=== PATIENT | female | born 1955 | race Hispanic/Latino ===

== ENCOUNTER 2020-01-04 18:19 | Inpatient (IN) | payer MEDICARE ==
[~2020-01-04] VITALS: Ht 154.9 cm; Wt 70.4 kg
--- OUTSIDE RECORDS SUMMARY | 2020-01-04 18:22 | XMS REPORT ---
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 Allergies, Adverse Reactions, Alerts Allergy Name Allergy Type Status Severity Reaction(s) Onset Date Inactive Date Treating Clinician Comments No Known Allergies DA Active U 2019-10-04 00:00:00 Medications This patient has no known medications. Results Test Description Test Time Test Comments Text Results Atomic Results Result Comments GLUBED 2019-10-12 17:14:00 GLUBED (test code=GLUBED) 179 mg/dL 74-106 Performed by certified chemical unit operator at [facility] [id number] 14:40:00* Test Item Value Reference Range Comments GLUBED (test code=GLUBED) 166 mg/dL 74-106 Performed by certified chemical unit operator at [facility] [id number] 06:41:00* Test Item Value Reference Range Comments GLUBED (test code=GLUBED) 191 mg/dL 74-106 Performed by certified chemical unit operator at [facility] [id number] 20:51:00* Test Item Value Reference Range Comments GLUBED (test code=GLUBED) 176 mg/dL 74-106 Performed by certified chemical unit operator at [facility] [id number] 17:36:00* Test Item Value Reference Range Comments GLUBED (test code=GLUBED) 135 mg/dL 74-106 Performed by certified chemical unit operator at [facility] [id number] 12:52:00* Test Item Value Reference Range Comments GLUBED (test code=GLUBED) 155 mg/dL 74-106 Performed by certified chemical unit operator at [facility] BASIC METABOLIC [id number] 10:04:00* Test Item Value Reference Range Comments SODIUM (test code=NA) 145 mmol/L 136-145 POTASSIUM (test code=K) 3.6 mmol/L 3.5-5.1 CHLORIDE (test code=CL) 115.0 mmol/L 98-107 CARBON DIOXIDE (test code=CO2) 23.0 mmol/L 21-32 ANION GAP (test code=GAP) 10.6 10-20 GLUCOSE (test code=GLU) 131 mg/dL 74-106 BLOOD UREA NITROGEN (test code=BUN) 10 mg/dL 7-18 GLOMERULAR FILTRATION RATE (test code=GFR) > 60 mL/min >=60 Estimated GFR by using Modified MDRD formula.Chronic kidney disease is defined as either kidney damageor GFR <60 mL/min/1.73 m2 for >3 months. CREATININE (test code=CREAT) 0.50 mg/dL 0.55-1.02 Note change in reference range due to change in reagent. BUN/CREATININE RATIO (test code=BUN/CREA) 20.0 10-20 CALCIUM (test code=CA) 7.1 mg/dL 8.5-10.1 BASIC METABOLIC [id number] 10:01:00* Test Item Value Reference Range Comments SODIUM (test code=NA) 145 mmol/L 136-145 POTASSIUM (test code=K) 3.6 mmol/L 3.5-5.1 CHLORIDE (test code=CL) 115.0 mmol/L 98-107 CARBON DIOXIDE (test code=CO2) 23.0 mmol/L 21-32 ANION GAP (test code=GAP) 10.6 10-20 GLUCOSE (test code=GLU) mg/dL 74-106 BLOOD UREA NITROGEN (test code=BUN) 10 mg/dL 7-18 GLOMERULAR FILTRATION RATE (test code=GFR) mL/min >=60 CREATININE (test code=CREAT) mg/dL 0.55-1.02 BUN/CREATININE RATIO (test code=BUN/CREA) 10-20 CALCIUM (test code=CA) 7.1 mg/dL 8.5-10.1 CBC W/AUTO [id number] 09:39:00* Test Item Value Reference Range Comments WHITE BLOOD CELL (test code=WBC) 5.5 K/mm3 4.5-12.5 RED BLOOD CELL (test code=RBC) 3.16 mill/mm3 3.7-5.2 HEMOGLOBIN (test code=HGB) 8.5 gram/dL 11.5-15.5 HEMATOCRIT (test code=HCT) 27.3 % 36.0-46.0 MEAN CELL VOLUME (test code=MCV) 86.4 fL 80-98 MEAN CELL HGB (test code=MCH) 26.9 picogram 27.0-33.0 MEAN CELL HGB CONCETRATION (test code=MCHC) 31.1 gram/dL 33.0-36.0 RED CELL DISTRIBUTION WIDTH (test code=RDW) 14.6 % 11.6-16.2 RED CELL DISTRIBUTION WIDTH SD (test code=RDW-SD) 45.4 fL 37.0-51.0 PLATELET COUNT (test code=PLT) 193 K/mm3 150-450 MEAN PLATELET VOLUME (test code=MPV) 10.9 fL 6.7-11.0 NEUTROPHIL % (test code=NT%) 55.3 % 39.0-69.0 IMMATURE GRANULOCYTE % (test code=IG%) 0.9 % 0.0-5.0 LYMPHOCYTE % (test code=LY%) 30.4 % 25.0-55.0 MONOCYTE % (test code=MO%) 7.6 % 0.0-10.0 EOSINOPHIL % (test code=EO%) 5.4 % 0.0-5.0 BASOPHIL % (test code=BA%) 0.4 % 0.0-1.0 NUCLEATED RBC % (test code=NRBC%) 0.0 % 0-0 NEUTROPHIL # (test code=NT#) 3.06 K/mm3 1.8-7.7 IMMATURE GRANULOCYTE # (test code=IG#) 0.05 x10 3/uL 0-0.03 LYMPHOCYTE # (test code=LY#) 1.68 K/mm3 1.0-5.0 MONOCYTE # (test code=MO#) 0.42 K/mm3 0-0.8 EOSINOPHIL # (test code=EO#) 0.30 K/mm3 0.0-0.5 BASOPHIL # (test code=BA#) 0.02 K/mm3 0.0-0.2 NUCLEATED RBC # (test code=NRBC#) 0.00 K/mm3 0.0-0.1 MANUAL DIFF REQUIRED (test code=MDIFF) NO [id number] 06:58:00* Test Item Value Reference Range Comments GLUBED (test code=GLUBED) 127 mg/dL 74-106 [facility] [id number] 21:34:00* Test Item Value Reference Range Comments GLUBED (test code=GLUBED) 186 mg/dL 74-106 [facility] [id number] 17:07:00* Test Item Value Reference Range Comments GLUBED (test code=GLUBED) 126 mg/dL 74-106 Performed by certified chemical unit operator at [facility] [id number] 13:07:00* Test Item Value Reference Range Comments HEMOGLOBIN (test code=HGB) 6.9 gram/dL 11.5-15.5 [id number] 12:17:00* Test Item Value Reference Range Comments GLUBED (test code=GLUBED) 138 mg/dL 74-106 Performed by certified chemical unit operator at [facility] [id number] 06:20:00* Test Item Value Reference Range Comments GLUBED (test code=GLUBED) 132 mg/dL 74-106 Performed by certified chemical unit operator at [facility] [id number] 20:45:00* Test Item Value Reference Range Comments GLUBED (test code=GLUBED) 150 mg/dL 74-106 Performed by certified chemical unit operator at [facility] CBC W/AUTO [id number] 19:52:00* Test Item Value Reference Range Comments WHITE BLOOD CELL (test code=WBC) 5.5 K/mm3 4.5-12.5 RED BLOOD CELL (test code=RBC) 2.46 mill/mm3 3.7-5.2 HEMOGLOBIN (test code=HGB) 6.6 gram/dL 11.5-15.5 HEMATOCRIT (test code=HCT) 22.1 % 36.0-46.0 MEAN CELL VOLUME (test code=MCV) 89.8 fL 80-98 MEAN CELL HGB (test code=MCH) 26.8 picogram 27.0-33.0 MEAN CELL HGB CONCETRATION (test code=MCHC) 29.9 gram/dL 33.0-36.0 RED CELL DISTRIBUTION WIDTH (test code=RDW) 13.5 % 11.6-16.2 RED CELL DISTRIBUTION WIDTH SD (test code=RDW-SD) 44.4 fL 37.0-51.0 PLATELET COUNT (test code=PLT) 197 K/mm3 150-450 MEAN PLATELET VOLUME (test code=MPV) 11.1 fL 6.7-11.0 NEUTROPHIL % (test code=NT%) 55.2 % 39.0-69.0 IMMATURE GRANULOCYTE % (test code=IG%) 0.4 % 0.0-5.0 LYMPHOCYTE % (test code=LY%) 32.9 % 25.0-55.0 MONOCYTE % (test code=MO%) 7.1 % 0.0-10.0 EOSINOPHIL % (test code=EO%) 4.0 % 0.0-5.0 BASOPHIL % (test code=BA%) 0.4 % 0.0-1.0 NUCLEATED RBC % (test code=NRBC%) 0.0 % 0-0 NEUTROPHIL # (test code=NT#) 3.02 K/mm3 1.8-7.7 IMMATURE GRANULOCYTE # (test code=IG#) 0.02 x10 3/uL 0-0.03 LYMPHOCYTE # (test code=LY#) 1.80 K/mm3 1.0-5.0 MONOCYTE # (test code=MO#) 0.39 K/mm3 0-0.8 EOSINOPHIL # (test code=EO#) 0.22 K/mm3 0.0-0.5 BASOPHIL # (test code=BA#) 0.02 K/mm3 0.0-0.2 NUCLEATED RBC # (test code=NRBC#) 0.00 K/mm3 0.0-0.1 DIFFERENTIAL [id number] 19:52:00* Test Item Value Reference Range Comments STAIN ACCEPTABILITY (test code=STN ACCEPTABLE) STAIN ACCEPTABLE POIKILOCYTOSIS (test code=POIK) 1+ CRENATED CELLS (test code=CREN) 1+ PLATELET ESTIMATE (test code=PLTEST) ADEQUATE PLATELET MORPHOLOGY (test code=PLTMORPH) SIZE VARIABLE CBC W/AUTO [id number] 19:30:00* Test Item Value Reference Range Comments WHITE BLOOD CELL (test code=WBC) 5.5 K/mm3 4.5-12.5 RED BLOOD CELL (test code=RBC) 2.46 mill/mm3 3.7-5.2 HEMOGLOBIN (test code=HGB) 6.6 gram/dL 11.5-15.5 HEMATOCRIT (test code=HCT) 22.1 % 36.0-46.0 MEAN CELL VOLUME (test code=MCV) 89.8 fL 80-98 MEAN CELL HGB (test code=MCH) 26.8 picogram 27.0-33.0 MEAN CELL HGB CONCETRATION (test code=MCHC) 29.9 gram/dL 33.0-36.0 RED CELL DISTRIBUTION WIDTH (test code=RDW) 13.5 % 11.6-16.2 RED CELL DISTRIBUTION WIDTH SD (test code=RDW-SD) 44.4 fL 37.0-51.0 PLATELET COUNT (test code=PLT) 197 K/mm3 150-450 MEAN PLATELET VOLUME (test code=MPV) 11.1 fL 6.7-11.0 NEUTROPHIL % (test code=NT%) 55.2 % 39.0-69.0 IMMATURE GRANULOCYTE % (test code=IG%) 0.4 % 0.0-5.0 LYMPHOCYTE % (test code=LY%) 32.9 % 25.0-55.0 MONOCYTE % (test code=MO%) 7.1 % 0.0-10.0 EOSINOPHIL % (test code=EO%) 4.0 % 0.0-5.0 BASOPHIL % (test code=BA%) 0.4 % 0.0-1.0 NUCLEATED RBC % (test code=NRBC%) 0.0 % 0-0 NEUTROPHIL # (test code=NT#) 3.02 K/mm3 1.8-7.7 IMMATURE GRANULOCYTE # (test code=IG#) 0.02 x10 3/uL 0-0.03 LYMPHOCYTE # (test code=LY#) 1.80 K/mm3 1.0-5.0 MONOCYTE # (test code=MO#) 0.39 K/mm3 0-0.8 EOSINOPHIL # (test code=EO#) 0.22 K/mm3 0.0-0.5 BASOPHIL # (test code=BA#) 0.02 K/mm3 0.0-0.2 NUCLEATED RBC # (test code=NRBC#) 0.00 K/mm3 0.0-0.1 DIFFERENTIAL [id number] 19:30:00* Test Item Value Reference Range Comments STAIN ACCEPTABILITY (test code=STN ACCEPTABLE) CABOT RINGS (test code=CAB) MORPHOLOGY COMMENT (test code=MOC) PLATELET ESTIMATE (test code=PLTEST) PLATELET MORPHOLOGY (test code=PLTMORPH) CBC W/AUTO [id number] 19:30:00* Test Item Value Reference Range Comments WHITE BLOOD CELL (test code=WBC) 5.5 K/mm3 4.5-12.5 RED BLOOD CELL (test code=RBC) 2.46 mill/mm3 3.7-5.2 HEMOGLOBIN (test code=HGB) 6.6 gram/dL 11.5-15.5 HEMATOCRIT (test code=HCT) 22.1 % 36.0-46.0 MEAN CELL VOLUME (test code=MCV) 89.8 fL 80-98 MEAN CELL HGB (test code=MCH) 26.8 picogram 27.0-33.0 MEAN CELL HGB CONCETRATION (test code=MCHC) 29.9 gram/dL 33.0-36.0 RED CELL DISTRIBUTION WIDTH (test code=RDW) 13.5 % 11.6-16.2 RED CELL DISTRIBUTION WIDTH SD (test code=RDW-SD) 44.4 fL 37.0-51.0 PLATELET COUNT (test code=PLT) 197 K/mm3 150-450 MEAN PLATELET VOLUME (test code=MPV) 11.1 fL 6.7-11.0 NEUTROPHIL % (test code=NT%) 55.2 % 39.0-69.0 IMMATURE GRANULOCYTE % (test code=IG%) 0.4 % 0.0-5.0 LYMPHOCYTE % (test code=LY%) 32.9 % 25.0-55.0 MONOCYTE % (test code=MO%) 7.1 % 0.0-10.0 EOSINOPHIL % (test code=EO%) 4.0 % 0.0-5.0 BASOPHIL % (test code=BA%) 0.4 % 0.0-1.0 NUCLEATED RBC % (test code=NRBC%) 0.0 % 0-0 NEUTROPHIL # (test code=NT#) 3.02 K/mm3 1.8-7.7 IMMATURE GRANULOCYTE # (test code=IG#) 0.02 x10 3/uL 0-0.03 LYMPHOCYTE # (test code=LY#) 1.80 K/mm3 1.0-5.0 MONOCYTE # (test code=MO#) 0.39 K/mm3 0-0.8 EOSINOPHIL # (test code=EO#) 0.22 K/mm3 0.0-0.5 BASOPHIL # (test code=BA#) 0.02 K/mm3 0.0-0.2 NUCLEATED RBC # (test code=NRBC#) 0.00 K/mm3 0.0-0.1 DIFFERENTIAL [id number] 19:30:00* Test Item Value Reference Range Comments STAIN ACCEPTABILITY (test code=STN ACCEPTABLE) CABOT RINGS (test code=CAB) MORPHOLOGY COMMENT (test code=MOC) PLATELET ESTIMATE (test code=PLTEST) PLATELET MORPHOLOGY (test code=PLTMORPH) CBC W/AUTO [id number] 19:30:00* Test Item Value Reference Range Comments WHITE BLOOD CELL (test code=WBC) 5.5 K/mm3 4.5-12.5 RED BLOOD CELL (test code=RBC) 2.46 mill/mm3 3.7-5.2 HEMOGLOBIN (test code=HGB) 6.6 gram/dL 11.5-15.5 HEMATOCRIT (test code=HCT) 22.1 % 36.0-46.0 MEAN CELL VOLUME (test code=MCV) 89.8 fL 80-98 MEAN CELL HGB (test code=MCH) 26.8 picogram 27.0-33.0 MEAN CELL HGB CONCETRATION (test code=MCHC) 29.9 gram/dL 33.0-36.0 RED CELL DISTRIBUTION WIDTH (test code=RDW) 13.5 % 11.6-16.2 RED CELL DISTRIBUTION WIDTH SD (test code=RDW-SD) 44.4 fL 37.0-51.0 PLATELET COUNT (test code=PLT) 197 K/mm3 150-450 MEAN PLATELET VOLUME (test code=MPV) 11.1 fL 6.7-11.0 NEUTROPHIL % (test code=NT%) 55.2 % 39.0-69.0 IMMATURE GRANULOCYTE % (test code=IG%) 0.4 % 0.0-5.0 LYMPHOCYTE % (test code=LY%) 32.9 % 25.0-55.0 MONOCYTE % (test code=MO%) 7.1 % 0.0-10.0 EOSINOPHIL % (test code=EO%) 4.0 % 0.0-5.0 BASOPHIL % (test code=BA%) 0.4 % 0.0-1.0 NUCLEATED RBC % (test code=NRBC%) 0.0 % 0-0 NEUTROPHIL # (test code=NT#) 3.02 K/mm3 1.8-7.7 IMMATURE GRANULOCYTE # (test code=IG#) 0.02 x10 3/uL 0-0.03 LYMPHOCYTE # (test code=LY#) 1.80 K/mm3 1.0-5.0 MONOCYTE # (test code=MO#) 0.39 K/mm3 0-0.8 EOSINOPHIL # (test code=EO#) 0.22 K/mm3 0.0-0.5 BASOPHIL # (test code=BA#) 0.02 K/mm3 0.0-0.2 NUCLEATED RBC # (test code=NRBC#) 0.00 K/mm3 0.0-0.1 DIFFERENTIAL [id number] 19:30:00* Test Item Value Reference Range Comments STAIN ACCEPTABILITY (test code=STN ACCEPTABLE) MORPHOLOGY COMMENT (test code=MOC) PLATELET ESTIMATE (test code=PLTEST) PLATELET MORPHOLOGY (test code=PLTMORPH) CBC W/AUTO [id number] 19:28:00* Test Item Value Reference Range Comments WHITE BLOOD CELL (test code=WBC) 5.5 K/mm3 4.5-12.5 RED BLOOD CELL (test code=RBC) 2.46 mill/mm3 3.7-5.2 HEMOGLOBIN (test code=HGB) 6.6 gram/dL 11.5-15.5 HEMATOCRIT (test code=HCT) 22.1 % 36.0-46.0 MEAN CELL VOLUME (test code=MCV) 89.8 fL 80-98 MEAN CELL HGB (test code=MCH) 26.8 picogram 27.0-33.0 MEAN CELL HGB CONCETRATION (test code=MCHC) 29.9 gram/dL 33.0-36.0 RED CELL DISTRIBUTION WIDTH (test code=RDW) 13.5 % 11.6-16.2 RED CELL DISTRIBUTION WIDTH SD (test code=RDW-SD) 44.4 fL 37.0-51.0 PLATELET COUNT (test code=PLT) 197 K/mm3 150-450 MEAN PLATELET VOLUME (test code=MPV) 11.1 fL 6.7-11.0 NEUTROPHIL % (test code=NT%) 55.2 % 39.0-69.0 IMMATURE GRANULOCYTE % (test code=IG%) 0.4 % 0.0-5.0 LYMPHOCYTE % (test code=LY%) 32.9 % 25.0-55.0 MONOCYTE % (test code=MO%) 7.1 % 0.0-10.0 EOSINOPHIL % (test code=EO%) 4.0 % 0.0-5.0 BASOPHIL % (test code=BA%) 0.4 % 0.0-1.0 NUCLEATED RBC % (test code=NRBC%) 0.0 % 0-0 NEUTROPHIL # (test code=NT#) 3.02 K/mm3 1.8-7.7 IMMATURE GRANULOCYTE # (test code=IG#) 0.02 x10 3/uL 0-0.03 LYMPHOCYTE # (test code=LY#) 1.80 K/mm3 1.0-5.0 MONOCYTE # (test code=MO#) 0.39 K/mm3 0-0.8 EOSINOPHIL # (test code=EO#) 0.22 K/mm3 0.0-0.5 BASOPHIL # (test code=BA#) 0.02 K/mm3 0.0-0.2 NUCLEATED RBC # (test code=NRBC#) 0.00 K/mm3 0.0-0.1 BASIC METABOLIC [id number] 19:18:00* Test Item Value Reference Range Comments SODIUM (test code=NA) 144 mmol/L 136-145 POTASSIUM (test code=K) 3.8 mmol/L 3.5-5.1 CHLORIDE (test code=CL) 114.0 mmol/L 98-107 CARBON DIOXIDE (test code=CO2) 23.0 mmol/L 21-32 ANION GAP (test code=GAP) 10.8 10-20 GLUCOSE (test code=GLU) 151 mg/dL 74-106 BLOOD UREA NITROGEN (test code=BUN) 11 mg/dL 7-18 GLOMERULAR FILTRATION RATE (test code=GFR) > 60 mL/min >=60 Estimated GFR by using Modified MDRD formula.Chronic kidney disease is defined as either kidney damageor GFR <60 mL/min/1.73 m2 for >3 months. CREATININE (test code=CREAT) 0.70 mg/dL 0.55-1.02 Note change in reference range due to change in reagent. BUN/CREATININE RATIO (test code=BUN/CREA) 15.7 10-20 CALCIUM (test code=CA) 7.1 mg/dL 8.5-10.1 BASIC METABOLIC [id number] 19:15:00* Test Item Value Reference Range Comments SODIUM (test code=NA) 144 mmol/L 136-145 POTASSIUM (test code=K) 3.8 mmol/L 3.5-5.1 CHLORIDE (test code=CL) 114.0 mmol/L 98-107 CARBON DIOXIDE (test code=CO2) mmol/L 21-32 ANION GAP (test code=GAP) 10-20 GLUCOSE (test code=GLU) mg/dL 74-106 BLOOD UREA NITROGEN (test code=BUN) mg/dL 7-18 GLOMERULAR FILTRATION RATE (test code=GFR) mL/min >=60 CREATININE (test code=CREAT) mg/dL 0.55-1.02 BUN/CREATININE RATIO (test code=BUN/CREA) 10-20 CALCIUM (test code=CA) mg/dL 8.5-10.1 [id number] 16:25:00* Test Item Value Reference Range Comments GLUBED (test code=GLUBED) 142 mg/dL 74-106 Performed by certified chemical unit operator at [facility] [id number] 11:48:00* Test Item Value Reference Range Comments GLUBED (test code=GLUBED) 114 mg/dL 74-106 Performed by certified chemical unit operator at [facility] [id number] 05:59:00* Test Item Value Reference Range Comments GLUBED (test code=GLUBED) 71 mg/dL 74-106 Performed by certified chemical unit operator at [facility] [id number] 20:44:00* Test Item Value Reference Range Comments GLUBED (test code=GLUBED) 134 mg/dL 74-106 Performed by certified chemical unit operator at [facility] [id number] 18:33:00* Test Item Value Reference Range Comments GLUBED (test code=GLUBED) 113 mg/dL 74-106 Performed by certified chemical unit operator at [facility] - NM BONE [id number] 14:28:00 FAX: Ana Lilia Stern [phone] [place]: St: ADM Name: YOSELIN BLACKMAN [facility] : [birth year] Age/S: 64/F [address] [facility] Unit #: [id number] Loc: V.2050 [place] [address] Phys: Woodrow Escamilla Acct: [id number] Dis Date: Status: ADM IN PHONE #: [phone] Exam Date: 10/08/2019 1325 FAX #: [phone] Reason: osteomyelitis of sacrum EXAMS: CPT CODE: [id number] NM BONE LIMITED 57741 REASON FOR EXAM: osteomyelitis of sacrum Exam Order Date: 10/08/2019 8:16 PM Ordering: Angela Escamilla Attending:Ana Lilia East MD Location:[facility] COMPARISON:CT of the abdomen 10/04/2019 Procedure: - NM BONE LIMITED FINDINGS: The patient was injected with 1:13 PM mCi of technetium 99m HDP. The delayed images show no abnormal uptake within the pelvis or proximal femurs IM PRESSION: No abnormal uptake to suggest osteomyelitis of the sacrum/cocc yx at 6042 Reported and signed by: Hal Camacho M.D. CC: Ana Lilia East MD Technologist: Gloria jolley RT(N) Trnscrd Date/Time/By: 10/08/2019 ( 6380) : By: [email or web address] Orig Print D/T: S: 10/08/2019 (6025) PAGE 1 Signed Report [id number] 13:08:00* Test Item Value Reference Range Comments GLUBED (test code=GLUBED) 98 mg/dL 74-106 Performed by certified chemical unit operator at [facility] [id number] 05:48:00* Test Item Value Reference Range Comments GLUBED (test code=GLUBED) 79 mg/dL 74-106 Performed by certified chemical unit operator at [facility] [id number] 21:20:00* Test Item Value Reference Range Comments GLUBED (test code=GLUBED) 158 mg/dL 74-106 Performed by certified chemical unit operator at [facility] [id number] 16:55:00* Test Item Value Reference Range Comments GLUBED (test code=GLUBED) 124 mg/dL 74-106 Performed by certified chemical unit operator at [facility] [id number] 16:55:00* Test Item Value Reference Range Comments GLUBED (test code=GLUBED) 116 mg/dL 74-106 Performed by certified chemical unit operator at [facility] [id number] 06:47:00* Test Item Value Reference Range Comments GLUBED (test code=GLUBED) 98 mg/dL 74-106 Performed by certified chemical unit operator at [facility] [id number] 21:17:00* Test Item Value Reference Range Comments GLUBED (test code=GLUBED) 217 mg/dL 74-106 Performed by certified chemical unit operator at [facility] - MRI BRAIN W/O [id number] 20:25:00 FAX: Ana Lilia Stern [phone] [place]: B St: [facility] FAX: Angel Najera MD Name: YOSELIN HALL [facility] : 1955 Age/S: 64/F [address] Unit #: [id number] Loc: V.2050 [place] [address] Phys: Ana Lilia East MD Acct: [id number] Dis Date: Status: ADM IN PHONE #: [phone] Exam Date: 10/06/2019 1704 FAX #: [phone] Reason: Worsening left sided weakness, r/o CVA EXAMS: CPT CODE: [id number] MRI BRAIN W/O CONTRAST 15333 EXAM: MRI of the brain without contrast; INFORMATI ON: Worsening left-sided weakness; rule out new CVA; TECHNIQUE AND FINDINGS: Multiplanar, multisequence scans of the brain were obtained inc luding diffusion-weighted studies. The ADC map study as well as FLAI R and T1 and T2 weighted studies show extensive chronic infarct in the rig ht MCA distribution. In addition, there is a narrow lesion with restricted diffusion along the lateral aspect of the dilated right ventricle. This is consistent with a superimposed small acute infarct no other acute ischemic lesions are demonstrated. The gradient echo study shows no evidence of intra or extra-axial hemorrhage. No mass lesions; no midline s hift. Ex vacuo dilatation of the right lateral ventricle and moderate dilatation of the left lateral ventricle. Periventricular gliosis is also seen. IMPRESSION: 1. 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 2. Additional chronic ischemic white matter changes. Location code: [facility] at 2024 Reported and signed by: Lb Lee M.D. CC: Ana Lilia East MD; Angel Najera MD Technologist: Catalina Mcdonnell(Sushil)(MR) Trnscrd Date/Time/By: 09/20 (2024) : By: ChristopherGRW Orig Print D/T: S: 10/06/2019 (2027) PAGE 1 Signed Report [id number] 18:38:00* Test Item Value Reference Range Comments GLUBED (test code=GLUBED) 177 mg/dL 74-106 Performed by certified chemical unit operator at [facility] [id number] 18:38:00* Test Item Value Reference Range Comments GLUBED (test code=GLUBED) 119 mg/dL 74-106 Performed by certified chemical unit operator at [facility] CBC W/AUTO [id number] 12:39:00* Test Item Value Reference Range Comments WHITE BLOOD CELL (test code=WBC) 6.9 K/mm3 4.5-12.5 RED BLOOD CELL (test code=RBC) 2.79 mill/mm3 3.7-5.2 HEMOGLOBIN (test code=HGB) 7.5 gram/dL 11.5-15.5 HEMATOCRIT (test code=HCT) 26.5 % 36.0-46.0 MEAN CELL VOLUME (test code=MCV) 95.0 fL 80-98 RESULT VERIFIED BY REPEAT ANALYSIS MEAN CELL HGB (test code=MCH) 26.9 picogram 27.0-33.0 MEAN CELL HGB CONCETRATION (test code=MCHC) 28.3 gram/dL 33.0-36.0 RED CELL DISTRIBUTION WIDTH (test code=RDW) 13.2 % 11.6-16.2 RED CELL DISTRIBUTION WIDTH SD (test code=RDW-SD) 45.8 fL 37.0-51.0 PLATELET COUNT (test code=PLT) 191 K/mm3 150-450 RESULT VERIFIED BY REPEAT ANALYSIS MEAN PLATELET VOLUME (test code=MPV) 11.3 fL 6.7-11.0 NEUTROPHIL % (test code=NT%) 64.3 % 39.0-69.0 IMMATURE GRANULOCYTE % (test code=IG%) 0.4 % 0.0-5.0 LYMPHOCYTE % (test code=LY%) 25.9 % 25.0-55.0 MONOCYTE % (test code=MO%) 5.5 % 0.0-10.0 EOSINOPHIL % (test code=EO%) 3.5 % 0.0-5.0 BASOPHIL % (test code=BA%) 0.4 % 0.0-1.0 NUCLEATED RBC % (test code=NRBC%) 0.0 % 0-0 NEUTROPHIL # (test code=NT#) 4.44 K/mm3 1.8-7.7 IMMATURE GRANULOCYTE # (test code=IG#) 0.03 x10 3/uL 0-0.03 LYMPHOCYTE # (test code=LY#) 1.79 K/mm3 1.0-5.0 MONOCYTE # (test code=MO#) 0.38 K/mm3 0-0.8 EOSINOPHIL # (test code=EO#) 0.24 K/mm3 0.0-0.5 BASOPHIL # (test code=BA#) 0.03 K/mm3 0.0-0.2 NUCLEATED RBC # (test code=NRBC#) 0.00 K/mm3 0.0-0.1 MANUAL DIFF REQUIRED (test code=MDIFF) NO, ONLY SCAN NEEDED DIFFERENTIAL [id number] 12:39:00* Test Item Value Reference Range Comments STAIN ACCEPTABILITY (test code=STN ACCEPTABLE) STAIN ACCEPTABLE MORPHOLOGY COMMENT (test code=MOC) NORMAL PLATELET ESTIMATE (test code=PLTEST) ADEQUATE PLATELET MORPHOLOGY (test code=PLTMORPH) SIZE VARIABLE [id number] 09:46:00* Test Item Value Reference Range Comments GLYCOSYLATED HEMOGLOBIN (HA1C) (test code=GLYHGB) 6.0 % HbA1 SUGGESTED DIAGNOSIS: HbA1C (%) Diabetic >6.4Prediabetes 5.7 - 6.4Normal <5.7 ESTIMATED AVERAGE GLUCOSE (test code=EAG) 126 MG/DL CBC W/AUTO [id number] 09:24:00* Test Item Value Reference Range Comments WHITE BLOOD CELL (test code=WBC) 6.9 K/mm3 4.5-12.5 RED BLOOD CELL (test code=RBC) 2.79 mill/mm3 3.7-5.2 HEMOGLOBIN (test code=HGB) 7.5 gram/dL 11.5-15.5 HEMATOCRIT (test code=HCT) 26.5 % 36.0-46.0 MEAN CELL VOLUME (test code=MCV) 95.0 fL 80-98 RESULT VERIFIED BY REPEAT ANALYSIS MEAN CELL HGB (test code=MCH) 26.9 picogram 27.0-33.0 MEAN CELL HGB CONCETRATION (test code=MCHC) 28.3 gram/dL 33.0-36.0 RED CELL DISTRIBUTION WIDTH (test code=RDW) 13.2 % 11.6-16.2 RED CELL DISTRIBUTION WIDTH SD (test code=RDW-SD) 45.8 fL 37.0-51.0 PLATELET COUNT (test code=PLT) 191 K/mm3 150-450 RESULT VERIFIED BY REPEAT ANALYSIS MEAN PLATELET VOLUME (test code=MPV) 11.3 fL 6.7-11.0 NEUTROPHIL % (test code=NT%) 64.3 % 39.0-69.0 IMMATURE GRANULOCYTE % (test code=IG%) 0.4 % 0.0-5.0 LYMPHOCYTE % (test code=LY%) 25.9 % 25.0-55.0 MONOCYTE % (test code=MO%) 5.5 % 0.0-10.0 EOSINOPHIL % (test code=EO%) 3.5 % 0.0-5.0 BASOPHIL % (test code=BA%) 0.4 % 0.0-1.0 NUCLEATED RBC % (test code=NRBC%) 0.0 % 0-0 NEUTROPHIL # (test code=NT#) 4.44 K/mm3 1.8-7.7 IMMATURE GRANULOCYTE # (test code=IG#) 0.03 x10 3/uL 0-0.03 LYMPHOCYTE # (test code=LY#) 1.79 K/mm3 1.0-5.0 MONOCYTE # (test code=MO#) 0.38 K/mm3 0-0.8 EOSINOPHIL # (test code=EO#) 0.24 K/mm3 0.0-0.5 BASOPHIL # (test code=BA#) 0.03 K/mm3 0.0-0.2 NUCLEATED RBC # (test code=NRBC#) 0.00 K/mm3 0.0-0.1 MANUAL DIFF REQUIRED (test code=MDIFF) NO, ONLY SCAN NEEDED DIFFERENTIAL [id number] 09:24:00* Test Item Value Reference Range Comments STAIN ACCEPTABILITY (test code=STN ACCEPTABLE) CABOT RINGS (test code=CAB) MORPHOLOGY COMMENT (test code=MOC) PLATELET ESTIMATE (test code=PLTEST) PLATELET MORPHOLOGY (test code=PLTMORPH) CBC W/AUTO [id number] 09:24:00* Test Item Value Reference Range Comments WHITE BLOOD CELL (test code=WBC) 6.9 K/mm3 4.5-12.5 RED BLOOD CELL (test code=RBC) 2.79 mill/mm3 3.7-5.2 HEMOGLOBIN (test code=HGB) 7.5 gram/dL 11.5-15.5 HEMATOCRIT (test code=HCT) 26.5 % 36.0-46.0 MEAN CELL VOLUME (test code=MCV) 95.0 fL 80-98 RESULT VERIFIED BY REPEAT ANALYSIS MEAN CELL HGB (test code=MCH) 26.9 picogram 27.0-33.0 MEAN CELL HGB CONCETRATION (test code=MCHC) 28.3 gram/dL 33.0-36.0 RED CELL DISTRIBUTION WIDTH (test code=RDW) 13.2 % 11.6-16.2 RED CELL DISTRIBUTION WIDTH SD (test code=RDW-SD) 45.8 fL 37.0-51.0 PLATELET COUNT (test code=PLT) 191 K/mm3 150-450 RESULT VERIFIED BY REPEAT ANALYSIS MEAN PLATELET VOLUME (test code=MPV) 11.3 fL 6.7-11.0 NEUTROPHIL % (test code=NT%) 64.3 % 39.0-69.0 IMMATURE GRANULOCYTE % (test code=IG%) 0.4 % 0.0-5.0 LYMPHOCYTE % (test code=LY%) 25.9 % 25.0-55.0 MONOCYTE % (test code=MO%) 5.5 % 0.0-10.0 EOSINOPHIL % (test code=EO%) 3.5 % 0.0-5.0 BASOPHIL % (test code=BA%) 0.4 % 0.0-1.0 NUCLEATED RBC % (test code=NRBC%) 0.0 % 0-0 NEUTROPHIL # (test code=NT#) 4.44 K/mm3 1.8-7.7 IMMATURE GRANULOCYTE # (test code=IG#) 0.03 x10 3/uL 0-0.03 LYMPHOCYTE # (test code=LY#) 1.79 K/mm3 1.0-5.0 MONOCYTE # (test code=MO#) 0.38 K/mm3 0-0.8 EOSINOPHIL # (test code=EO#) 0.24 K/mm3 0.0-0.5 BASOPHIL # (test code=BA#) 0.03 K/mm3 0.0-0.2 NUCLEATED RBC # (test code=NRBC#) 0.00 K/mm3 0.0-0.1 MANUAL DIFF REQUIRED (test code=MDIFF) NO, ONLY SCAN NEEDED DIFFERENTIAL [id number] 09:24:00* Test Item Value Reference Range Comments STAIN ACCEPTABILITY (test code=STN ACCEPTABLE) CABOT RINGS (test code=CAB) MORPHOLOGY COMMENT (test code=MOC) PLATELET ESTIMATE (test code=PLTEST) PLATELET MORPHOLOGY (test code=PLTMORPH) CBC W/AUTO [id number] 09:24:00* Test Item Value Reference Range Comments WHITE BLOOD CELL (test code=WBC) 6.9 K/mm3 4.5-12.5 RED BLOOD CELL (test code=RBC) 2.79 mill/mm3 3.7-5.2 HEMOGLOBIN (test code=HGB) 7.5 gram/dL 11.5-15.5 HEMATOCRIT (test code=HCT) 26.5 % 36.0-46.0 MEAN CELL VOLUME (test code=MCV) 95.0 fL 80-98 RESULT VERIFIED BY REPEAT ANALYSIS MEAN CELL HGB (test code=MCH) 26.9 picogram 27.0-33.0 MEAN CELL HGB CONCETRATION (test code=MCHC) 28.3 gram/dL 33.0-36.0 RED CELL DISTRIBUTION WIDTH (test code=RDW) 13.2 % 11.6-16.2 RED CELL DISTRIBUTION WIDTH SD (test code=RDW-SD) 45.8 fL 37.0-51.0 PLATELET COUNT (test code=PLT) 191 K/mm3 150-450 RESULT VERIFIED BY REPEAT ANALYSIS MEAN PLATELET VOLUME (test code=MPV) 11.3 fL 6.7-11.0 NEUTROPHIL % (test code=NT%) 64.3 % 39.0-69.0 IMMATURE GRANULOCYTE % (test code=IG%) 0.4 % 0.0-5.0 LYMPHOCYTE % (test code=LY%) 25.9 % 25.0-55.0 MONOCYTE % (test code=MO%) 5.5 % 0.0-10.0 EOSINOPHIL % (test code=EO%) 3.5 % 0.0-5.0 BASOPHIL % (test code=BA%) 0.4 % 0.0-1.0 NUCLEATED RBC % (test code=NRBC%) 0.0 % 0-0 NEUTROPHIL # (test code=NT#) 4.44 K/mm3 1.8-7.7 IMMATURE GRANULOCYTE # (test code=IG#) 0.03 x10 3/uL 0-0.03 LYMPHOCYTE # (test code=LY#) 1.79 K/mm3 1.0-5.0 MONOCYTE # (test code=MO#) 0.38 K/mm3 0-0.8 EOSINOPHIL # (test code=EO#) 0.24 K/mm3 0.0-0.5 BASOPHIL # (test code=BA#) 0.03 K/mm3 0.0-0.2 NUCLEATED RBC # (test code=NRBC#) 0.00 K/mm3 0.0-0.1 MANUAL DIFF REQUIRED (test code=MDIFF) NO, ONLY SCAN NEEDED DIFFERENTIAL [id number] 09:24:00* Test Item Value Reference Range Comments STAIN ACCEPTABILITY (test code=STN ACCEPTABLE) MORPHOLOGY COMMENT (test code=MOC) PLATELET ESTIMATE (test code=PLTEST) PLATELET MORPHOLOGY (test code=PLTMORPH) CBC W/AUTO [id number] 09:24:00* Test Item Value Reference Range Comments WHITE BLOOD CELL (test code=WBC) 6.9 K/mm3 4.5-12.5 RED BLOOD CELL (test code=RBC) 2.79 mill/mm3 3.7-5.2 HEMOGLOBIN (test code=HGB) 7.5 gram/dL 11.5-15.5 HEMATOCRIT (test code=HCT) 26.5 % 36.0-46.0 MEAN CELL VOLUME (test code=MCV) 95.0 fL 80-98 RESULT VERIFIED BY REPEAT ANALYSIS MEAN CELL HGB (test code=MCH) 26.9 picogram 27.0-33.0 MEAN CELL HGB CONCETRATION (test code=MCHC) 28.3 gram/dL 33.0-36.0 RED CELL DISTRIBUTION WIDTH (test code=RDW) 13.2 % 11.6-16.2 RED CELL DISTRIBUTION WIDTH SD (test code=RDW-SD) 45.8 fL 37.0-51.0 PLATELET COUNT (test code=PLT) 191 K/mm3 150-450 RESULT VERIFIED BY REPEAT ANALYSIS MEAN PLATELET VOLUME (test code=MPV) 11.3 fL 6.7-11.0 NEUTROPHIL % (test code=NT%) 64.3 % 39.0-69.0 IMMATURE GRANULOCYTE % (test code=IG%) 0.4 % 0.0-5.0 LYMPHOCYTE % (test code=LY%) 25.9 % 25.0-55.0 MONOCYTE % (test code=MO%) 5.5 % 0.0-10.0 EOSINOPHIL % (test code=EO%) 3.5 % 0.0-5.0 BASOPHIL % (test code=BA%) 0.4 % 0.0-1.0 NUCLEATED RBC % (test code=NRBC%) 0.0 % 0-0 NEUTROPHIL # (test code=NT#) 4.44 K/mm3 1.8-7.7 IMMATURE GRANULOCYTE # (test code=IG#) 0.03 x10 3/uL 0-0.03 LYMPHOCYTE # (test code=LY#) 1.79 K/mm3 1.0-5.0 MONOCYTE # (test code=MO#) 0.38 K/mm3 0-0.8 EOSINOPHIL # (test code=EO#) 0.24 K/mm3 0.0-0.5 BASOPHIL # (test code=BA#) 0.03 K/mm3 0.0-0.2 NUCLEATED RBC # (test code=NRBC#) 0.00 K/mm3 0.0-0.1 MANUAL DIFF REQUIRED (test code=MDIFF) NO, ONLY SCAN NEEDED DIFFERENTIAL [id number] 09:24:00* Test Item Value Reference Range Comments STAIN ACCEPTABILITY (test code=STN ACCEPTABLE) CABOT RINGS (test code=CAB) MORPHOLOGY COMMENT (test code=MOC) PLATELET ESTIMATE (test code=PLTEST) PLATELET MORPHOLOGY (test code=PLTMORPH) COMPREHENSIVE METABOLIC [id number] 08:58:00* Test Item Value Reference Range Comments SODIUM (test code=NA) 143 mmol/L 136-145 POTASSIUM (test code=K) 4.5 mmol/L 3.5-5.1 CHLORIDE (test code=CL) 113.0 mmol/L 98-107 CARBON DIOXIDE (test code=CO2) 21.0 mmol/L 21-32 ANION GAP (test code=GAP) 13.5 10-20 GLUCOSE (test code=GLU) 106 mg/dL 74-106 BLOOD UREA NITROGEN (test code=BUN) 10 mg/dL 7-18 GLOMERULAR FILTRATION RATE (test code=GFR) > 60 mL/min >=60 Estimated GFR by using Modified MDRD formula.Chronic kidney disease is defined as either kidney damageor GFR <60 mL/min/1.73 m2 for >3 months. CREATININE (test code=CREAT) 0.60 mg/dL 0.55-1.02 Note change in reference range due to change in reagent. BUN/CREATININE RATIO (test code=BUN/CREA) 16.7 10-20 TOTAL PROTEIN (test code=PROT) 5.1 gram/dL 6.4-8.2 ALBUMIN (test code=ALB) 1.3 g/dL 3.4-5.0 GLOBULIN (test code=GLOB) 3.8 gram/dL 2.7-4.2 ALBUMIN/GLOBULIN RATIO (test code=A/G) 0.3 0.75-1.50 CALCIUM (test code=CA) 7.4 mg/dL 8.5-10.1 BILIRUBIN TOTAL (test code=BILT) 0.20 mg/dL 0.0-1.0 SGOT/AST (test code=AST) 13 IUnit/L 15-37 SGPT/ALT (test code=ALT) 10 IUnit/L 12-78 ALKALINE PHOSPHATASE TOTAL (test code=ALKP) 84 IUnit/L 45-117 Note change in reference range due to change in reagent. LIPID PROFILE (CORONARY RISK)2019-10-06 08:58:00* Test Item Value Reference Range Comments TRIGLYCERIDES (test code=TRIG) 135 mg/dL 20-150 CHOLESTEROL (test code=CHOL) 133 mg/dL 0-200 CHOLESTEROL/HDL RATIO (test code=CHOLHDL) 3.0 RATIO 0-4.9 RISK ASSOCIATED WITH CHOL/HDL RATIOS: Risk Male Female1/2 AVERAGE 3.43 3.27AVERAGE 4.97 4.442X AVERAGE 9.55 7.053X AVERAGE 23.39 11.04 REFERENCE VALUE IS RELATED TO RISK LEVELS ASRECOMMENDED BY THE GIA. HEART, LUNG, AND BLOOD INST. HDL CHOLESTEROL (test code=HDL) 37 mg/dL 40-60 LIPOPROTEIN LDL (test code=LDL) 77 mg/dL 100-129 Reference Interval: mg/dL mmol/L Optimal <100 <2.6Near/above optimal 100-129 2.6- 3.3Borderline High 130-159 3.4-4.1High 160-189 4.1-4.9Very High >=190 >=4.9=========This LDL result is a direct measurement.========= COMPREHENSIVE METABOLIC [id number] 08:52:00* Test Item Value Reference Range Comments SODIUM (test code=NA) 143 mmol/L 136-145 POTASSIUM (test code=K) 4.5 mmol/L 3.5-5.1 CHLORIDE (test code=CL) 113.0 mmol/L 98-107 CARBON DIOXIDE (test code=CO2) mmol/L 21-32 ANION GAP (test code=GAP) 10-20 GLUCOSE (test code=GLU) mg/dL 74-106 BLOOD UREA NITROGEN (test code=BUN) mg/dL 7-18 GLOMERULAR FILTRATION RATE (test code=GFR) mL/min >=60 CREATININE (test code=CREAT) mg/dL 0.55-1.02 BUN/CREATININE RATIO (test code=BUN/CREA) 10-20 TOTAL PROTEIN (test code=PROT) gram/dL 6.4-8.2 ALBUMIN (test code=ALB) g/dL 3.4-5.0 GLOBULIN (test code=GLOB) gram/dL 2.7-4.2 ALBUMIN/GLOBULIN RATIO (test code=A/G) 0.75-1.50 CALCIUM (test code=CA) mg/dL 8.5-10.1 BILIRUBIN TOTAL (test code=BILT) mg/dL 0.0-1.0 SGOT/AST (test code=AST) IUnit/L 15-37 SGPT/ALT (test code=ALT) IUnit/L 12-78 ALKALINE PHOSPHATASE TOTAL (test code=ALKP) IUnit/L 45-117 LIPID PROFILE (CORONARY RISK)2019-10-06 08:52:00* Test Item Value Reference Range Comments TRIGLYCERIDES (test code=TRIG) mg/dL 20-150 CHOLESTEROL (test code=CHOL) mg/dL 0-200 CHOLESTEROL/HDL RATIO (test code=CHOLHDL) RATIO 0-4.9 HDL CHOLESTEROL (test code=HDL) mg/dL 40-60 LIPOPROTEIN LDL (test code=LDL) mg/dL 100-129 [id number] 06:25:00* Test Item Value Reference Range Comments GLUBED (test code=GLUBED) 101 mg/dL 74-106 Performed by certified chemical unit operator at [facility] [id number] 21:33:00* Test Item Value Reference Range Comments GLUBED (test code=GLUBED) 177 mg/dL 74-106 Performed by certified chemical unit operator at [facility] [id number] 10:40:00* Test Item Value Reference Range Comments GLUBED (test code=GLUBED) 137 mg/dL 74-106 Performed by certified chemical unit operator at [facility] [id number] 06:35:00* Test Item Value Reference Range Comments GLUBED (test code=GLUBED) 94 mg/dL 74-106 Performed by certified chemical unit operator at [facility] [id number] 03:18:00* Test Item Value Reference Range Comments GLUBED (test code=GLUBED) 96 mg/dL 74-106 Performed by certified chemical unit operator at [facility] SED [id number] 03:02:00* Test Item Value Reference Range Comments SED RATE (test code=SEDW) 124 mm/hr 0-20 WINTROBE METHOD: NORMAL RANGE FOR MEN: 0-9 MM/HR WOMAN: 0-20 MM/HR SED RATE [id number] 03:01:00* Test Item Value Reference Range Comments SED RATE WESTERGREN (test code=SEDW) 124 mm/hr 0-20 - CT ABD PELVIS [id number] 23:11:00 Name: YOSELIN HALL [facility] : 1955 Age/S: 64 / F [address] [facility] Unit #: [id number] Loc: [place] [address] Phys: Eleuterio Cummins MD Acct: [id number] Dis Date: Status: REG ER PHONE #: [phone] Exam Date: 10/04/20192258 FAX #: [phone] Reason: evaluate sacral ulcer EXAMS: CPT CODE: [id number] CT ABD PELVIS W/CONT 19853 Site ID: [id number] CLINICAL HISTORY: Sacral decubitus ulcer TECHNIQUE: Axial images of the abdomen and pelvis were obtained from diaphragm to the pubic symphysis with intravenous contrast. CT dose lowering technique utilized, with adjustment of MA/kV according to patient size and automated exposure control. DISCUSSION: The lung bases are clear. The heart size is normal. Trace pericardial fluid is noted. The liver is normal in size and contour, without focal abnormality. The gallbladder is normally distended, with internal gallstones. No biliary ductal dilatation. The spleen, pancreas and adrenal glands are unremarkable. Both kidneys are normal in size. No hydronephrosis or enhancing renal mass. Vascular structures are normal in caliber, with scattered small vessel calcification. The small and large bowel are free of inflammation and normal in caliber. Moderate volume stool is present throughout the colon. Appendix is normal. No adenopathy or ascites demonstrated. Uterus, adnexa and urinary bladder are within normal limits. Large stage IV decubitus ulceration is present over the coccygeal tip, with mild superficial cortical demineralization but no aggressive bony erosion. No presacral abscess. IMPRESSION: Large stage IV decubitus ulceration is present over the coccygeal tip, with mild superficial cortical demineralization but no aggressive bony erosion. No presacral abscess. Mild constipation. PAGE 1 Signed Report (CONTINUED) Name: YOSELIN HALL [facility] : 1955 Age/S: 64 / F [address] [facility] Unit #: [id number] Loc: [place] [address] Phys: Eleuterio Cummins MD Acct: [id number] Dis Date: Status: REG ER PHONE #: [phone] Exam Date: 10/04/20192258 FAX #: [phone] Reason: evaluate sacral ulcer EXAMS: CPT CODE: [id number] ABD PELVIS W/CONT 62488 < Continued> at 2311 Reported and signed by: Robert Goyal M.D. CC: Eleuterio Cummins MD Technologist:CIERA MEDINA RT(R),CT CTDI: DLP: Trnscb Date/Time: 10/04/2019 (2310) [email or web address] Orig Print D/T: S: 10/04/2019 (0819) PAGE 2 Signed Report URINALYSIS [id number] 22:58:00* Test Item Value Reference Range Comments UA COLOR (test code=COLU) DARK YELLOW YELLOW UA APPEARANCE (test code=APPU) HAZY CLEAR UA GLUCOSE DIPSTICK (test code=DGLUU) norm mg/dL NEGATIVE UA BILIRUBIN DIPSTICK (test code=BILU) NEGATIVE mg/dL NEGATIVE UA KETONE DIPSTICK (test code=KETU) 5 (Trace) mg/dL NEGATIVE UA SPECIFIC GRAVITY (test code=SGU) 1.015 1.001-1.035 UA BLOOD DIPSTICK (test code=ADDIE) 10 (Trace) Mark/uL NEGATIVE UA PH DIPSTICK (test code=AVIVA) 5.0 5.0-8.0 UA PROTEIN DIPSTICK (test code=PROU) 15 (TRACE) mg/dL Neg-15 UA UROBILINIOGEN DIPSTICK (test code=URO) 4 mg/dL (2+) mg/dL 0.0-0.2 UA NITRITE DIPSTICK (test code=GENO) NEGATIVE NEGATIVE UA LEUKOCYTE ESTERASE DIPSTICK (test code=LEUU) 500 Angela/uL (3+) uL NEGATIVE UA WBC (test code=WBCU) 20-30 per HPF 0-5 UA RBC (test code=RBCU) 3-5 per HPF 0-5 UA EPITHELIAL CELLS (test code=EPIU) Few (2-5/hpf) per HPF Few UA BACTERIA (test code=BACU) MANY per HPF NONE Urine Source? Clean CatchBASIC METABOLIC [id number] 22:31:00* Test Item Value Reference Range Comments SODIUM (test code=NA) 139 mmol/L 136-145 POTASSIUM (test code=K) 4.1 mmol/L 3.5-5.1 CHLORIDE (test code=CL) 102 mmol/L 101-109 CARBON DIOXIDE (test code=CO2) 33.4 mmol/L 21-32 ANION GAP (test code=GAP) 8 mmol/L 10-20 GLUCOSE (test code=GLU) 83 mg/dL 74-106 BLOOD UREA NITROGEN (test code=BUN) 11 mg/dL 3-21 GLOMERULAR FILTRATION RATE (test code=GFR) > 60 mL/min >=60 Estimated GFR by using Modified MDRD formula.Chronic kidney disease is defined as either kidney damageor GFR <60 mL/min/1.73 m2 for >3 months. CREATININE (test code=CREAT) 0.72 mg/dL 0.55-1.3 BUN/CREATININE RATIO (test code=BUN/CREA) 15.3 10-20 CALCIUM (test code=CA) 8.1 mg/dL 8.4-10.2 HEPATIC FUNCTION [id number] 22:31:00* Test Item Value Reference Range Comments TOTAL PROTEIN (test code=PROT) 5.5 g/dL 6.5-8.4 ALBUMIN (test code=ALB) 1.2 g/dL 3.4-4.8 GLOBULIN (test code=GLOB) 4.3 G/DL 1-10 ALBUMIN/GLOBULIN RATIO (test code=A/G) 0.28 RATIO 0.75-1.50 BILIRUBIN TOTAL (test code=BILT) 0.40 mg/dL 0.0-1.0 BILIRUBIN DIRECT (test code=BILD) 0.20 mg/dL 0.0-0.30 SGOT/AST (test code=AST) 14 U/L 6-32 SGPT/ALT (test code=ALT) 12 U/L 12-78 Note: Change in REFERENCE RANGE due to new reagent method. ALKALINE PHOSPHATASE TOTAL (test code=ALKP) 85 U/L 38-126 [id number] 22:31:00* Test Item Value Reference Range Comments TROPONIN-I (test code=TROPI) <0.015 ng/mL 0.00-0.056 - CT HEAD/BRAIN W/O [id number] 22:31:00 Name: YOSELIN HALL [facility] : 1955 Age/S: 64 / F [address] [facility] Unit #: [id number] Loc: [place] [address] Phys: Eleuterio Cummins MD Acct: [id number] Dis Date: Status: REG ER PHONE #: [phone] Exam Date: 10/04/20192214 FAX #: [phone] Reason: evaluate for new CVA EXAMS: CPT CODE: [id number] CT HEAD/BRAIN W/O CONT 49199 HISTORY: evaluate for new CVA TECHNIQUE: Noncontrast 2.[address] of the head. Examination acquired within 24 hours of arrival. Automated exposure control for dose reduction. COMPARISON: None FINDINGS: No lacerations or contusions of the scalp or facial soft tissues. Calvarium and skull base are intact. No acute hemorrhage. No intracranial mass, mass effect, or midline shift. There is a large infarct in the right frontal and temporal lobes in the territory of the right middle cerebral artery. This infarct appears to be chronic in gia ure. Visualized paranasal sinuses are clear. Mastoid air ce lls and middle ear cavities are clear. Prior right lens extraction. Left globe is unremarkable. 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 A superimposed acute infarct would be difficu lt to exclude, particularly in the absence of prior imaging. This can be assessed further with an MRI of the brain. No acute intracranial hemorr dinorah or mass effect. Location: [facility] Electronically S igned by Mushtaq Schuler MD on 10/04/2019 at 2231 Reported a nd signed by: Mushtaq Schuler MD CC: Eleuterio Cummins MD Technologist:CIERA MEDINA RT(R),CT CTDI: DLP: Trnscb Date/Time: 10/04/2019 (223) [email or web address] Orig Print D/T: S: 10/04/2019 (5195) PAGE 1 Signed Report PROTHROMBIN [id number] 22:20:00* Test Item Value Reference Range Comments PROTHROMBIN TIME PATIENT (test code=PTP) 10.9 seconds 9.0-13.0 INTERNATIONAL NORMAL RATIO (test code=INR) 1.1 0.8-1.2 The therapeutic range for oral anticoagulant therapy formost indications is an international normalized ratio (INR)of between 2.0 and 3.0. The recommended therapeutic INRrange for various clinical situations is listed below: Clinical Situation INR range Pulmonary e mbolism treatment (2.0-3.0)Venous thrombosis treatmentVenous thrombosis prophylaxis (high risk surgery)Prevention of systemic embolism from: Acute myocardial infarction Valvular heart disease Atrial fibrillation Mechanical prosthetic heart valves (2.5-3.5) IS PATIENT ON ANTICOAGULANTS? NTHROMBOPLASTIN TIME [id number] 22:20:00* Test Item Value Reference Range Comments THROMBOPLASTIN TIME PARTIAL (test code=PTT) 29.3 seconds 25.5-34.3 Therapeutic Range for patients on Heparin Therapy is 2 to2.5 times their baseline PTT level. IS PATIENT ON ANTICOAGULANTS? NBASIC METABOLIC [id number] 22:19:00* Test Item Value Reference Range Comments SODIUM (test code=NA) 139 mmol/L 136-145 POTASSIUM (test code=K) 4.1 mmol/L 3.5-5.1 CHLORIDE (test code=CL) 102 mmol/L 101-109 CARBON DIOXIDE (test code=CO2) 33.4 mmol/L 21-32 ANION GAP (test code=GAP) 8 mmol/L 10-20 GLUCOSE (test code=GLU) 83 mg/dL 74-106 BLOOD UREA NITROGEN (test code=BUN) 11 mg/dL 3-21 GLOMERULAR FILTRATION RATE (test code=GFR) > 60 mL/min >=60 Estimated GFR by using Modified MDRD formula.Chronic kidney disease is defined as either kidney damageor GFR <60 mL/min/1.73 m2 for >3 months. CREATININE (test code=CREAT) 0.72 mg/dL 0.55-1.3 BUN/CREATININE RATIO (test code=BUN/CREA) 15.3 10-20 CALCIUM (test code=CA) 8.1 mg/dL 8.4-10.2 HEPATIC FUNCTION [id number] 22:19:00* Test Item Value Reference Range Comments TOTAL PROTEIN (test code=PROT) gram/dL 6.4-8.2 ALBUMIN (test code=ALB) g/dL 3.4-5.0 GLOBULIN (test code=GLOB) g/dL 2.7-4.2 ALBUMIN/GLOBULIN RATIO (test code=A/G) 0.75-1.50 BILIRUBIN TOTAL (test code=BILT) mg/dL 0.2-1.2 BILIRUBIN DIRECT (test code=BILD) mg/dL 0.0-0.20 SGOT/AST (test code=AST) IUnit/L 15-37 SGPT/ALT (test code=ALT) U/L 10-69 ALKALINE PHOSPHATASE TOTAL (test code=ALKP) IUnit/L 45-117 [id number] 22:19:00* Test Item Value Reference Range Comments TROPONIN-I (test code=TROPI) ng/mL 0-0.045 CBC W/O [id number] 22:06:00* Test Item Value Reference Range Comments WHITE BLOOD CELL (test code=WBC) 7.3 K/mm3 4.5-12.5 RED BLOOD CELL (test code=RBC) 2.62 mill/mm3 3.7-5.2 HEMOGLOBIN (test code=HGB) 7.3 gram/dL 11.5-15.5 HEMATOCRIT (test code=HCT) 22.6 % 36.0-46.0 MEAN CELL VOLUME (test code=MCV) 86.3 fL 80-98 MEAN CELL HGB (test code=MCH) 27.9 picogram 27.0-33.0 MEAN CELL HGB CONCETRATION (test code=MCHC) 32.3 gram/dL 33.0-36.0 RED CELL DISTRIBUTION WIDTH (test code=RDW) 12.9 % 11.6-16.2 RED CELL DISTRIBUTION WIDTH SD (test code=RDW-SD) 40.4 fL 37.0-51.0 PLATELET COUNT (test code=PLT) 261 K/mm3 150-450 MEAN PLATELET VOLUME (test code=MPV) 10.6 fL 6.7-11.0 - XR CHEST 1 [id number] 21:57:00 Name: YOSELIN HALL [facility] : 1955 Age/S:64 /F [address] [facility] Unit#:[id number] Loc: [place] [address] Phys: Eleuterio Cummins MD Dis Date: PHONE #: [phone] Status: REG ER FAX #: [phone] Exam Date: 10/04/2019 Reason: CHEST PAIN EXAMS: CPT CODE: [id number] XR CHEST 1 V 01617 REASON FOR EXAM: CHEST PAIN Exam Order Date: 10/04/2019 9:22 PM Ordering M.D.: Eleuterio Cummins MD PROCEDURE: - XR CHEST 1 V COMPARISON: None FINDINGS: The lungs are clear. There is no pleural effusion or pneumothorax. Pulmonary vascularity is within normal limits. Cardiomediastinal silhouette is normal in size for technique. The mediastinal contours are within normal limits. Mild degenerative changes are present in the spine and shoulders. The visualized upper abdomen is within normal limits. IMPRESSION: No acute cardiopulmonary process. Location: [facility] at 2157 Reported and signed by: Mushtaq Schuler MD CC: Eleuterio Cummins MD Technologist: CIERA MEDINA RT(R),CT Trnscrpt Data: 10/04/2019 (2156) [id number] Orig Print D/T: S: 10/04/2019 (9670) PAGE 1 Signed Report
--- NOTE | 2020-01-04 18:41 | NUR ---
Patients [facility] contact [phone]
[2020-01-04 19:53] LABS: BASOPHILS % 0.3 % (0.0-1.0); EOSINOPHILS # (AUTO) 0.3 (0.0-0.4); EOSINOPHILS % 2.8 % (0.0-6.0); HEMATOCRIT 33.7 % (34.2-44.1); HEMOGLOBIN 11.2 g/dL (12.0-16.0); LYMPHOCYTES # (AUTO) 2.1 (1.0-3.2); LYMPHOCYTES % 22.8 % (18.0-39.1); MEAN CORPUSCULAR HGB CONC 33.2 g/dL (31-35); MEAN CORPUSCULAR VOLUME 90.3 fL (81-99); MONOCYTES # (AUTO) 0.5 (0.2-0.8); MONOCYTES % 5.2 % (4.4-11.3); NEUTROPHILS # (AUTO) 6.2 (2.1-6.9); NEUTROPHILS % 68.5 % (38.7-80.0); PLATELET COUNT 311 x10e3/uL (140-360); RED BLOOD COUNT 3.73 x10e6/uL (3.6-5.1); RED CELL DISTRIBUTION WIDTH 14.3 % (11.7-14.4)
[2020-01-04] MEDS ORDERED: PANTOPRAZOLE 40 MG 10ML VIAL IV STA (19:57)
[2020-01-04 20:04] LABS: INR 1.01; PROTHROMBIN TIME 13.9 seconds (11.9-14.5)
[2020-01-04 20:05] LABS: PARTIAL THROMBOPLASTIN TIME 37.1 seconds (23.8-35.5)
[2020-01-04 20:12] LABS: AMYLASE 50 U/L (25-125); LIPASE < 4 U/L (8-78)
[2020-01-04 20:14] LABS: ALANINE AMINOTRANSFERASE 7 IU/L (0-55); ALBUMIN 2.6 g/dL (3.5-5.0); ALBUMIN/GLOBULIN RATIO 0.6 (0.8-2.0); ALKALINE PHOSPHATASE 62 IU/L (40-150); ANION GAP 12.1 mmol/L (8-16); BLOOD UREA NITROGEN 13 mg/dL (7-26); BUN/CREATININE RATIO 21 (6-25); CALCIUM 9.4 mg/dL (8.4-10.2); CARBON DIOXIDE 30 mmol/L (22-29); CHLORIDE 96 mmol/L (98-107); CREATININE, SERUM 0.61 mg/dL (0.57-1.11); EST GLOMERULAR FILTRATION RATE > 60 ML/MIN (60-); GLUCOSE 137 mg/dL (74-118); POTASSIUM 4.1 mmol/L (3.5-5.1); SODIUM 134 mmol/L (136-145)
--- NOTE | 2020-01-04 20:14 | Diagnostic Imaging Report ---
Examination: Single AP view of the chest. COMPARISON: None. INDICATION: Evaluate for pneumonia DISCUSSION: Lines/tubes: None. Lungs: The lungs are well inflated and clear. No pneumonia or pulmonary edema. Pleura: No pleural effusion or pneumothorax. Heart and mediastinum: The heart and the mediastinum are unremarkable. Bones and soft tissues: No acute bony abnormalities. IMPRESSION: 1. No acute cardiopulmonary abnormalities. Signed by: Dr. Lei Yanes M.D. on 01/04/2020 8:10 PM
--- NOTE | 2020-01-04 20:23 | Diagnostic Imaging Report ---
EXAMINATION: CT of the abdomen and pelvis without contrast. TECHNIQUE: Helical CT images of the abdomen and pelvis were performed from the lung bases to the lesser trochanters. No intravenous contrast was given per renal stone protocol. Coronal and sagittal reformatted images were obtained.Dose modulation, iterative reconstruction, and/or weight based adjustment of the mA/kV was utilized to reduce the radiation dose to as low as reasonably achievable. COMPARISON: None. CLINICAL HISTORY:Abdominal pain, GI bleed DISCUSSION: ABSENCE OF INTRAVENOUS CONTRAST DECREASES SENSITIVITY FOR DETECTION OF FOCAL LESIONS AND VASCULAR PATHOLOGY. ABDOMEN/PELVIS: LOWER THORAX: Unremarkable. HEPATOBILIARY:No focal hepatic lesions. No biliary ductal dilation. The gallbladder is normal. SPLEEN: No splenomegaly. PANCREAS: No focal masses or ductal dilatation. ADRENALS: No adrenal nodules. KIDNEYS/URETERS: No hydronephrosis, stones, or solid mass lesions. PELVIC ORGANS/BLADDER: Romero catheter within the bladder. PERITONEUM/RETROPERITONEUM: No free air or fluid. LYMPH NODES: No intra-abdominal,retroperitoneal, pelvic or inguinal lymphadenopathy. VESSELS: Vascular calcifications. GI TRACT: The rectum is distended with stool measuring up to approximately 7.5 cm with wall thickening. Possible intraluminal air within the rectal wall for example axial image 133 and 134. The appendix is normal. BONES AND SOFT TISSUES: No bony destructive lesions. No soft tissue abnormalities. IMPRESSION: Findings of rectal stercoral colitis Signed by: Dr. Lei Yanes M.D. on 01/04/2020 8:19 PM
[2020-01-04 20:54] LABS: BILIRUBIN,URINE NEGATIVE (NEGATIVE); CLARITY,URINE HAZY (CLEAR); COLOR,URINE YELLOW (YELLOW); KETONES,URINE NEGATIVE (NEGATIVE); LEUKOCYTE ESTERASE ,URINE 2+ (NEGATIVE); NITRITE,URINE NEGATIVE (NEGATIVE); PROTEIN,URINE DIPSTICK 1+ (NEGATIVE); URINE UROBILINOGEN 0.2 mg/dL (0.2 - 1)
[2020-01-04 21:03] LABS: CREATINE KINASE 51 IU/L (29-168)
[2020-01-04 21:11] LABS: BACTERIA,URINE MODERATE /HPF; EPITHELIAL CELLS,URINE FEW /LPF; WBC,URINE (MAN) 21-50 /HPF (0-5)
[2020-01-04] MEDS ORDERED: LEVOFLOXACIN 500MG/D5W 100ML IV SCH (21:45)
[2020-01-04] MEDS ORDERED: METRONIDAZOLE 500MG/NS 100ML IV SCH (21:45)
[2020-01-04] MEDS ORDERED: DEXTROSE 50% SYRINGE 50 ML IV PRN (21:45)
[2020-01-04 22:56] VITALS: BP 170/75
--- NOTE | 2020-01-04 23:30 | NUR ---
PATIENT RECEIVED FROM ER IN STABLE CONDITION, VOICES PAIN UPON MOVEMENT. PATIENT IS SLOV[place] SPEAKING AND PRESENTS WITH MULTIPLE WOUNDS, STAGE 4 ON SACRUM NOTED, DRESSING IS DRY AND INTACT. PIMENTEL IS INTACT AND IS PATENT AND FLOWING, IV FLUIDS ARE RUNNING AT ORDERED RATE. BED IS IN LOWEST POSITION, BOTH SIDE RAILS ARE UP, BED ALARM IS ON, WILL CONTINUE TO MONITOR.
[2020-01-04] MEDS ORDERED: ENOXAPARIN40 MG/0.4 SC (23:38)
[2020-01-04] MEDS ORDERED: ASPIRIN81 MG PO (23:38)
[2020-01-04] MEDS ORDERED: ACETAMINOPHEN325 M1 PO (23:38)
[2020-01-04] MEDS ORDERED: POLYETHYLENE GL17 GM PO (23:38)
[2020-01-04] MEDS ORDERED: LACTULOSE20 GM/30 M PO (23:38)
[2020-01-04] MEDS ORDERED: NORCO 5-325 TA1 EACH PO (23:38)
[2020-01-04] MEDS ORDERED: LOSARTAN POTASS25 MG PO (23:38)
[2020-01-04] MEDS ORDERED: GLUCOSE GEL38 GM PO (23:38)
[2020-01-04] MEDS ORDERED: DULCOLAX10 MG RC (23:38)
[2020-01-04] MEDS ORDERED: LANTUS 3ML100 UNITS/ SC (23:38)
[2020-01-04] MEDS ORDERED: ULTRAM50 MG PO (23:38)
[2020-01-04] MEDS ORDERED: CLOPIDOGREL75 MG PO (23:38)
[2020-01-04] MEDS ORDERED: HYDROCORTISONE30 GM TOP (23:38)
[2020-01-04] MEDS ORDERED: NYSTATIN TOP (23:38)
[2020-01-04] MEDS ORDERED: DIPHENHYDRAMINE25 MG PO (23:38)
[2020-01-04] MEDS ORDERED: HYDROXYZINE HCL25 MG PO (23:38)
[2020-01-04] MEDS ORDERED: ATORVASTATIN CA20 MG PO (23:38)
[2020-01-04] MEDS: SODIUM CHLORIDE 0.9% 1000ML 1,000 ML IV SCH (23:40)
[2020-01-04] MEDS: LEVOFLOXACIN 500MG/D5W 100ML 100 ML IV SCH (23:40)
[2020-01-05] VITALS (9 sets, daily range): BP systolic 111–183; BP diastolic 62–83
[2020-01-05] MEDS: METRONIDAZOLE 500MG/NS 100ML 100 ML IV SCH ×5 (01:13→23:19)
--- NOTE | 2020-01-05 05:00 | NUR ---
PATIENT RECEIVED SOAP SUDS ENEMA AND TOLERATED WELL. PATIENT VOICED PAIN UPON MOVEMENT, AND BOWEL MOVEMENT WAS SUCCESSFUL. NEW DRESSING WAS APPLIED TO STAGE 4 SACRUM, ABRASIONS ON BOTTOM NOTED.
[2020-01-05] MEDS: SODIUM CHLORIDE 0.9% 1000ML 1,000 ML IV SCH (05:27)
[2020-01-05 05:37] LABS: BASOPHILS % 0.3 % (0.0-1.0); EOSINOPHILS # (AUTO) 0.4 (0.0-0.4); EOSINOPHILS % 4.3 % (0.0-6.0); HEMATOCRIT 29.2 % (34.2-44.1); HEMOGLOBIN 9.4 g/dL (12.0-16.0); LYMPHOCYTES # (AUTO) 2.7 (1.0-3.2); LYMPHOCYTES % 30.1 % (18.0-39.1); MEAN CORPUSCULAR HEMOGLOBIN 29.7 pg (28-32); MEAN CORPUSCULAR HGB CONC 32.2 g/dL (31-35); MEAN CORPUSCULAR VOLUME 92.1 fL (81-99); MONOCYTES # (AUTO) 0.6 (0.2-0.8); MONOCYTES % 6.7 % (4.4-11.3); NEUTROPHILS # (AUTO) 5.3 (2.1-6.9); NEUTROPHILS % 58.3 % (38.7-80.0); PLATELET COUNT 264 x10e3/uL (140-360); RED BLOOD COUNT 3.17 x10e6/uL (3.6-5.1); RED CELL DISTRIBUTION WIDTH 14.2 % (11.7-14.4)
[2020-01-05 05:58] LABS: ALBUMIN 2.2 g/dL (3.5-5.0); ALBUMIN/GLOBULIN RATIO 0.6 (0.8-2.0); ALKALINE PHOSPHATASE 56 IU/L (40-150); ANION GAP 12.6 mmol/L (8-16); BLOOD UREA NITROGEN 13 mg/dL (7-26); BUN/CREATININE RATIO 23 (6-25); CALCIUM 8.7 mg/dL (8.4-10.2); CARBON DIOXIDE 27 mmol/L (22-29); CHLORIDE 101 mmol/L (98-107); CREATININE, SERUM 0.57 mg/dL (0.57-1.11); EST GLOMERULAR FILTRATION RATE > 60 ML/MIN (60-); GLUCOSE 112 mg/dL (74-118); POTASSIUM 3.6 mmol/L (3.5-5.1); SODIUM 137 mmol/L (136-145)
[2020-01-05 06:00] LABS: ALANINE AMINOTRANSFERASE < 6 IU/L (0-55)
[2020-01-05] MEDS: INSULIN REGULAR, HUMAN 100 UNIT/1 ML 3ML VIAL SQ SCH ×4 (07:30→21:00)
--- NOTE | 2020-01-05 07:46 | NUR ---
Received patient this morning, alert and in bed sleeping, air mattress in place, NPO, IV fluids running, Romero cath in place, Stage 4 coccyx, wound consulted, NPO, consult to GI and notified, call light within reach, will monitor.
[2020-01-05] MEDS: PANTOPRAZOLE 40 MG 10ML VIAL IV SCH ×2 (09:08→17:00)
--- NOTE | 2020-01-05 13:52 | NUR ---
Patient not able to understand explanation regarding EGD even with use of translation, called who speaks some micronesian and could not completely understand on the phone, he will be here in 1 hour to sign consent. EGD will be rescheduled to tomorrow given this limitation. Patient remains NPO.
--- NOTE | 2020-01-05 14:13 | NUR ---
Patient states feels blood sugar is low, checked it was 70, offered OJx2 and cranberry juice x2 with crackers. Will monitor. Remains alert and responsive,
--- NOTE | 2020-01-05 15:35 | NUR ---
Patient's arrived and signed consent for EGD and for blood transfusion if needed. Dressing changed to coccyx, Stage 4 wound with excoriated surrounding area, packed and Alyven dressing applied.
--- NOTE | 2020-01-05 17:04 | NUR ---
Nutrition Intervention Note RD Recommendation(s) for Physician: - Recommend FITNESS ASSISTANT consult 2/2 hx of dysphagia - When feasible, ADAT to goal of - Recommend Glucerna Shake BID for adequacy - Recommend Yaw 1 packet BID to promote wound healing - Recommend MVI with minerals once daily, vitamin C 500 mg/day, and 220 mg Zinc Sulfate once daily to promote wound healing Plan of Care: RD following, monitoring for tolerance and adequacy. Diet, supplement, and MVI/mineral rec's. Nutrition reason for involvement: Dx on admit- stage IV PUD RD Assessment 01/04: 64 YOF admitted from SNF for colitis and coffee ground emesis, seen today per stage IV PU to sacrum on admit. Pt with hx of CVA, dysphagia, cognitive communicative deficit, and is Persian speaking only- unable to obtain hx from pt, no family present at time of visit. Pt appears well nourished. 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 Chart reviewed. Pt discussed during am MDR. Will continue to monitor. Principal Problems/Diagnoses: colitis, UTI, coffee ground emesis PMH: CVA, hemiplegia, hemiparesis, pressue ulcer, dysphagia, failure to thrive, cognitive communicative deficit, DM, anemia, essential HTN GI: LBM 01/04- liquid Skin: stage IV sacral PU Labs: 01/04: Na 137, K 3.6, BUN 13, Cr 0.57, Gluc 112 Meds: protonix, abx, regular insulin, zofran IVF: NS at 125 ml/hr Ht: 61 in Wt: 151 lb BMI: 28.5 kg/m2 IBW: 105 lb Malnutrition Evaluation (01/05/20) The patient does not meet criteria for a specified degree of malnutrition at this time. Will re-evaluate at follow-up as appropriate. Unable to obtain nutrition hx. Energy intake: Unable to assess Weight loss: Unable to assess Fat loss: none, ample triceps skinfold thickness Muscle loss: none, shoulder round and interosseous flat Supporting Evidence: Fluid accumulation: none observed Functional Status: Not assessed Nutrition Prescription (Diet Order): NPO Estimated Nutritional Needs: 2545-0094 calories/day (18-22 kcal/kg CBW) 68-103 g protein/day (1-1.5 g pro/kg CBW) Diet Adequacy: Not meeting calorie needs, Not meeting protein needs- NPO Diet Tolerance: N/A Diet Education Needs Assessment: Diet education not indicated at this time Nutrition Care Level: mod Nutrition Diagnosis: Inadequate energy and protein intake related to colitis as evidenced by NPO due to coffee ground emesis and pending EGD. Goal: Patient will meet 75-100% of estimated needs by follow up Progress: N/A Interventions: -CHO, fiber modified diet, Commercial beverage, Prescription medications, Recommended Modifications, Multivitamin/mineral supplement therapy, Collaboration with other providers Monitoring/Evaluation: -Total energy intake, Total protein intake, Prescription medication, Modified diet, Liquid supplement Signed: Dawna Mosqueda RD, LD, [facility]
--- NOTE | 2020-01-05 18:23 | NUR ---
Call to Dr. Edwards's service for consult for peritoneal dialysis catheter per Adjunct English Instructor.
--- NOTE | 2020-01-05 19:00 | NUR ---
Received patient in bed with eyes open. Tajik speaking. AAOx3. at bedside. NS at 125ml/hr to right ac 20g. Romero draining to bedside. Pt NPO. Call light in reach. Bed in locked and low position
[2020-01-05] MEDS ORDERED: BISACODYL 10 MG SUPP PR SCH (22:00)
[2020-01-05] MEDS ORDERED: POLYETHYLENE GLYCOL 3350 17 GM PACK PO PRN (22:00)
[2020-01-05] MEDS ORDERED: DEXTROSE 40% GEL 31 GM TUBE PO PRN (22:00)
[2020-01-05] MEDS ORDERED: NON-FORMULARY MEDICATION (Diphenhydramine Hcl 25 MG) PO PRN (22:00)
[2020-01-05] MEDS ORDERED: HYDRALAZINE HCL 20 MG/ML VIAL IV PRN (22:00)
[2020-01-05] MEDS ORDERED: BISACODYL 5 MG TAB EC PO ONE ×4 (22:00→23:30)
[2020-01-05] MEDS ORDERED: HYDROXYZINE HCL 25 MG TAB PO PRN (22:00)
[2020-01-05] MEDS ORDERED: TRAMADOL HCL 50 MG TAB PO PRN (22:00)
[2020-01-05] MEDS ORDERED: ACETAMINOPHEN 325 MG TAB PO PRN (22:00)
--- NOTE | 2020-01-05 22:00 | NUR ---
received order per Dr. Teresa Orona, 1. consent needed for colonoscopy, 2. place patient on a clear liquid diet. 3. Give Dulcolax 20mg now then Dulcolax 20 mg Q30 x 3doses. 4. Give one bottle Mag. Citrate at 5am and repeat at 7a. 5. If patient is clear at 7a. place patient back on NPO status.
[2020-01-05] MEDS: HYDROCODONE/APAP 5MG-325MG TAB PO PRN (22:45)
[2020-01-05] MEDS ORDERED: BISACODYL 10 MG SUPP PR PRN (22:45)
[2020-01-05] MEDS: LEVOFLOXACIN 500MG/D5W 100ML 100 ML IV SCH (22:46)
[2020-01-06] VITALS (8 sets, daily range): BP systolic 125–185; BP diastolic 58–84
[2020-01-06] MEDS: SODIUM CHLORIDE 0.9% 1000ML 1,000 ML IV SCH ×3 (04:13→07:19)
[2020-01-06] MEDS: HYDROCODONE/APAP 5MG-325MG TAB PO PRN ×3 (04:23→17:19)
[2020-01-06] MEDS: ONDANSETRON HCL INJ 2MG/ML 2ML 2 MG/ML VIAL IV PRN ×2 (04:40→18:24)
[2020-01-06] MEDS ORDERED: CITRATE OF MAGNESIA 300ML BOTTLE PO ONE ×2 (05:00→07:00)
[2020-01-06 05:21] LABS: BASOPHILS % 0.3 % (0.0-1.0); EOSINOPHILS # (AUTO) 0.3 (0.0-0.4); EOSINOPHILS % 4.7 % (0.0-6.0); HEMOGLOBIN 9.1 g/dL (12.0-16.0); LYMPHOCYTES # (AUTO) 2.2 (1.0-3.2); LYMPHOCYTES % 31.9 % (18.0-39.1); MEAN CORPUSCULAR HEMOGLOBIN 30.2 pg (28-32); MEAN CORPUSCULAR HGB CONC 32.5 g/dL (31-35); MONOCYTES # (AUTO) 0.5 (0.2-0.8); MONOCYTES % 7.3 % (4.4-11.3); NEUTROPHILS # (AUTO) 3.9 (2.1-6.9); NEUTROPHILS % 55.5 % (38.7-80.0); PLATELET COUNT 219 x10e3/uL (140-360); RED BLOOD COUNT 3.01 x10e6/uL (3.6-5.1); RED CELL DISTRIBUTION WIDTH 14.1 % (11.7-14.4)
[2020-01-06 05:41] LABS: ANION GAP 10.5 mmol/L (8-16); BLOOD UREA NITROGEN 10 mg/dL (7-26); BUN/CREATININE RATIO 18 (6-25); CALCIUM 8.3 mg/dL (8.4-10.2); CARBON DIOXIDE 24 mmol/L (22-29); CHLORIDE 107 mmol/L (98-107); CHOL/HDL RATIO 3.3 (3.0-3.6); CHOLESTEROL 132 MD/DL (0-199); CREATININE, SERUM 0.55 mg/dL (0.57-1.11); EST GLOMERULAR FILTRATION RATE > 60 ML/MIN (60-); GLUCOSE 102 mg/dL (74-118); HDL CHOLESTEROL 40 MG/DL (40-60); LDL CHOLESTEROL 76 MG/DL (60-130); MAGNESIUM 1.5 MG/DL (1.3-2.1); PHOSPHORUS 3.3 MG/DL (2.3-4.7); POTASSIUM 3.5 mmol/L (3.5-5.1); SODIUM 138 mmol/L (136-145); TRIGLYCERIDES 78 MG/DL (0-149)
[2020-01-06 06:02] LABS: THYROID STIMULATING HORMONE 3.573 uIU/mL (0.350-4.940)
[2020-01-06] MEDS: METRONIDAZOLE 500MG/NS 100ML 100 ML IV SCH ×4 (06:53→23:37)
[2020-01-06] MEDS: INSULIN REGULAR, HUMAN 100 UNIT/1 ML 3ML VIAL SQ SCH ×4 (07:30→21:00)
[2020-01-06] MEDS: INSULIN GLARGINE 100 UNITS/ML VIAL SC SCH (09:00)
[2020-01-06] MEDS: CLOPIDOGREL BISULFATE 75 MG TAB PO SCH (09:00)
--- NOTE | 2020-01-06 09:09 | NUR ---
Patient seen by wound and has a stage 3 wound, recommending placing negative pressure wound vac and orders per LIVESTOCK DEALER to wound RN and will place wound vac tomorrow given patient is being evacuated today for a colonoscopy with laxatives.
[2020-01-06] MEDS: ASPIRIN 81 MG CHEW TAB PO SCH (09:12)
[2020-01-06] MEDS: PANTOPRAZOLE 40 MG 10ML VIAL IV SCH ×2 (09:12→17:15)
[2020-01-06] MEDS: ZINC OXIDE 30 GM TUBE TOP SCH ×3 (09:13→21:00)
[2020-01-06] MEDS: LACTULOSE SYRUP 20 GM/30 ML UDC PO SCH ×2 (09:13→17:00)
[2020-01-06] MEDS: MAGNESIUM OXIDE 400 MG TAB PO SCH ×2 (09:13→17:15)
[2020-01-06] MEDS: MULTIVITAMINS/MINERALS TAB PO SCH (09:13)
[2020-01-06] MEDS: OYST-CAL-D 500MG TABLET PO SCH ×3 (09:13→21:20)
[2020-01-06] MEDS: ZINC SULFATE 220 MG CAP PO SCH ×2 (09:13→17:15)
[2020-01-06] MEDS: LOSARTAN POTASSIUM 25 MG TAB PO SCH (09:13)
[2020-01-06] MEDS: ASCORBIC ACID 500 MG TAB PO SCH ×2 (09:13→17:15)
[2020-01-06] MEDS: NYSTATIN 15 GM POWDER UD BTL TOP SCH ×2 (11:07→17:15)
--- NOTE | 2020-01-06 11:24 | NUR ---
WOUND CARE CONSULT FOR 64 YO FEMALE HX OFcolitis, UTI, HEMOEMESIS GINO 18 ON CONSERVATIVE PUP STATUS AND INTERVENTIONS AND ALTERNATING PRESSURE MATTRESS LABS: WBC-6.99 HGB_9.1 GLUCOSE-102 SKIN ASSESSMENT COMPLETE PATIENT PRESENTS WITH RIGHT FOOT STAGE 2 ULCERATION [id number] X.1CM LEFT FOOT 1ST AND 2ND TOES JONE NAIL BED RED IRRITATED PARTIAL THICKNESS OPENINGS .7CM X.7CM X.1 CM LEFT HEEL UNSTAGEABLE ULCERATION 2CM X2.5CM X DARK ESCHAR AND SLOUGH SACRAL STAGE 3 ULCERATION 8CM X10CM X3CM RECOMMENDATIONS: NURSING TO CONTINUE TO MAINTAIN CONSERVATIVE PUP STATUS AND INTERVENTIONS AND ALTERNATING PRESSURE MATTRESS NURSING TO CONTINUE TO ASSIST PATIENT OUT OF BED FOR MEALS AND MUCH TOLERATED NURSING TO CONTINUE TO ASSIST PATIENT NEEDED WITH MEALS AND NUTRITIONAL SUPPLEMENTS TO ENSURE PROPER REQUIREMENTS FOR HEALING NURSING TO CONTINUE TO OFFLOAD FEET AND HEELS NEEDED WITH PILLOW SUSPENSION WHEN IN BED NURSING TO CLEAN RIGHT FOOT STAGE 2 ULCERATION WITH NORMAL SALINE DAILY AND APPLY VENELEX OINTMENT AND ALLEVYN FOAM DRESSING NURSING TO CLEAN LEFT FOOT 1ST AND 2ND TOES ULCERATIONS WITH NORMAL SALINE DAILY AND APPLY VENELEX OINTMENT NURSING TO CLEAN LEFT FOOT UNSTAGEABLE ULCERATION WITH NORMAL SALINE DAILY AND APPLY SANTYL OINTMENT AND COVER WITH ALLEVYN FOAM DRESSING NURSING TO CLEAN SACRAL STAGE 3 ULCERATION WITH NORMAL SALINE AND APPLY NEGATIVE PRESSURE DRESSING BLACK FOAM @ 120 MMHG CONTINUOUS SETTING APPLY 01/07 2020 POST CURRENT SCHEDULED COLONOSCOPY PREP AND PROCEDURE 01/06/2020 Addendum: 01/06/20 at 1140 by Ervin Rodgers RN Amended: Links added.
--- NOTE | 2020-01-06 13:54 | Operative Report ---
DATE OF PROCEDURE: 01/06/2020 SURGEON: Pranay Orona MD PROCEDURES: EGD with biopsies and a flexible sigmoidoscopy with polypectomy. INDICATIONS FOR EGD: History of hematemesis. INDICATIONS FOR COLONOSCOPY: Stercoral proctitis per CT scan. MEDICATIONS: The patient was done under MAC, please see anesthesiologist's note. PROCEDURE IN DETAIL: With the patient in the left lateral decubitus position, a flexible fiberoptic Olympus gastroscope was introduced into the esophagus under direct visualization without any difficulty. Multiple linear erosions were noted in the esophagus. There was no active bleeding. The scope was then advanced with ease into the stomach traversing a small sliding hiatal hernia. Mucosa overlying the antrum and the body revealed some patchy intense erythema and low-grade to moderate edema, and biopsies were obtained and sent to stain for H. pylori. Pylorus was of normal contour and shape, was intubated with ease and the scope was advanced all the way to the second portion of the duodenum. The scope was then withdrawn slowly, mucosa overlying the proximal second portion and the duodenal bulb appeared to be within normal limits. The mucosa overlying the proximal second portion and duodenal bulb appeared to be within normal limits. The scope was then withdrawn back into the stomach and retroflexed, mucosa overlying the fundus and the cardia appeared to be within normal limits. The scope was then straightened out, it was subsequently withdrawn, and the patient tolerated the procedure well. IMPRESSION: 1. Erosive esophagitis. 2. Small sliding hiatal hernia. 3. Gastritis, biopsied, biopsies sent to stain for Helicobacter pylori. PLAN: Follow up histology. Initiate Protonix 40 mg 1 p.o. q.a.m. before meals. The patient was then turned around and after adequate lubrication of the anal canal, a flexible fiberoptic Olympus colonoscope was inserted into the rectum with ease and advanced to approximately 30 cm from the anal verge. Prep was poor with eyaximua-et-syvyi amount of retained fecal material. An approximately 6 mm sessile polyp was noted in the distal rectum that was removed per snare electrocautery. The scope was then retroflexed into the distal rectum and the area around the dentate line appeared to be within normal limits. The scope was then straightened out, it was subsequently withdrawn, and the patient tolerated the procedure well. IMPRESSION: 1. Poor prep. 2. Rectal polyp, removed per hot snare polypectomy. The patient will need a followup colonoscopy after a better prep. MD JOSE LUIS Bae/REED /[id number] cc: Kip Cali MD
--- NOTE | 2020-01-06 13:57 | NUR ---
Patient had EGD and noted ulcerations and gastritis and colonoscopy was done but inadequate because patient was not clear but found polyps in cecum and removed. Will repeat colonoscopy
[2020-01-06] MEDS ORDERED: PROPOFOL IV EMULSION 10 MG/ML 50 ML VIAL ONE (13:58)
[2020-01-06] MEDS ORDERED: FENTANYL CITRATE/PF 100MCG/2 ML INJ ONE (14:14)
--- NOTE | 2020-01-06 14:23 | NUR ---
SPOKE WITH HE STATES SHE CAME FROM [facility] AND DOES NOT WANT HER TO RETURN. HE ASKED IF SHE CAN GO BACK TO [facility] IN [place]. I EDUCATED HIM THAT SHE IS NOT ABLE TO DO 3 HOURS OF REHAB AT THIS TIME SO IT IS NOT AN APPROPRIATE REFERRAL HE WOULD HAVE TO PICK SOME WHERE ELSE UNTIL SHE GETS STRONGER. HE SIGNED FOR HER TO GO TO [facility]. FAXED CLINICALS AND PASRR TO FACILITY. COMPLETED RTF AND PUT WITH PACKET.
[2020-01-06] MEDS: COLLAGENASE 5 GM TUBE TOP SCH (17:14)
[2020-01-06] MEDS: BALSAM PERU/CASTOR OIL 60 GM OINT...G. TP SCH (17:14)
[2020-01-06] MEDS: HYDROCORTISONE .5% 30 GM TUBE TOP SCH ×2 (18:13→22:00)
--- NOTE | 2020-01-06 19:00 | NUR ---
RECEIVED PATIENT IN BEDSIDE SHIFT REPORT. PATIENT A&OX3, SOME FORGETFULNESS NOTED. PIMENTEL DRAINING CLEAR YELLOW URINE TO GRAVITY, HUNG ON SIDE OF BED, OFF OF FLOOR. NO PAIN REPORTED AT THIS TIME. R AC 20G ASYMPTOMATIC, INTACT, AND PATENT, RUNNING NS @ 50ML/HR. ALTERNATING PRESSURE MATTRESS ACTIVE, SCDS ACTIVE. BED LOCKED IN LOWEST POSITION, SIDE RAILS UPX2, CALL LIGHT IN REACH.
--- NOTE | 2020-01-06 19:07 | NUR ---
Noted epogen was not pulled from [employer], patient denies receiving epogen yesterday, administered at this time Addendum: 01/06/20 at 1908 by Doris Sullivan RN Wrong chart
[2020-01-06] MEDS ORDERED: ATORVASTATIN 20 MG TAB PO SCH (21:00)
[2020-01-06] MEDS: LEVOFLOXACIN 500MG/D5W 100ML 100 ML IV SCH (22:33)
[2020-01-06] MEDS ORDERED: POTASSIUM CHLORIDE 20 MEQ TAB CR PO STA (23:05)
--- NOTE | 2020-01-06 23:09 | NUR ---
SPOKE WITH MD Darleen SIDDIQUI, NEW ORDERS RECEIVED TO PREP FOR COLONOSCOPY TOMORROW.
[2020-01-06] MEDS ORDERED: BISACODYL 5 MG TAB EC PO ONE ×2 (23:15→23:45)
[2020-01-07] VITALS: BP 128/66
[2020-01-07] MEDS ORDERED: POTASSIUM CHLORIDE 20 MEQ TAB CR PO STA (00:12)
[2020-01-07] MEDS ORDERED: BISACODYL 5 MG TAB EC PO ONE ×2 (00:15→00:45)
--- NOTE | 2020-01-07 02:10 | NUR ---
IV NOTED TO BE LEAKING AND PAINFUL TO PATIENT. IV REMOVED. CATHETER TIP INTACT. PRESSURE DRESSING APPLIED.
[2020-01-07] MEDS: ONDANSETRON HCL INJ 2MG/ML 2ML 2 MG/ML VIAL IV PRN (02:51)
[2020-01-07 04:00] VITALS: BP 130/60
[2020-01-07] MEDS: SODIUM CHLORIDE 0.9% 1000ML 1,000 ML IV SCH (04:27)
[2020-01-07] MEDS ORDERED: CITRATE OF MAGNESIA 300ML BOTTLE PO ONE (05:00)
--- NOTE | 2020-01-07 05:30 | NUR ---
BOTTLE OF MAGNESIUM CITRATE GIVEN TO PATIENT. PATIENT TAKING ONLY VERY SMALL SIPS AT A TIME AND REFUSING TO DRINK IT FASTER. WILL ADMINISTER MUCH POSSIBLE BEFORE CHANGE OF SHIFT. LAST BM NOT YET CLEAR. WILL INFORM AM NURSE.
[2020-01-07] MEDS: METRONIDAZOLE 500MG/NS 100ML 100 ML IV SCH ×3 (05:45→17:38)
[2020-01-07] MEDS: HYDROCORTISONE .5% 30 GM TUBE TOP SCH ×2 (05:46→14:00)
[2020-01-07 06:15] LABS: BASOPHILS % 0.3 % (0.0-1.0); EOSINOPHILS # (AUTO) 0.1 (0.0-0.4); EOSINOPHILS % 1.1 % (0.0-6.0); HEMATOCRIT 30.9 % (34.2-44.1); LYMPHOCYTES # (AUTO) 2.7 (1.0-3.2); LYMPHOCYTES % 27.9 % (18.0-39.1); MEAN CORPUSCULAR HEMOGLOBIN 30.1 pg (28-32); MEAN CORPUSCULAR HGB CONC 32.4 g/dL (31-35); MEAN CORPUSCULAR VOLUME 93.1 fL (81-99); MONOCYTES # (AUTO) 0.5 (0.2-0.8); MONOCYTES % 5.5 % (4.4-11.3); NEUTROPHILS # (AUTO) 6.3 (2.1-6.9); NEUTROPHILS % 64.9 % (38.7-80.0); PLATELET COUNT 283 x10e3/uL (140-360); RED BLOOD COUNT 3.32 x10e6/uL (3.6-5.1)
[2020-01-07 06:29] LABS: ANION GAP 12.5 mmol/L (8-16); BLOOD UREA NITROGEN 12 mg/dL (7-26); BUN/CREATININE RATIO 20 (6-25); CALCIUM 8.8 mg/dL (8.4-10.2); CARBON DIOXIDE 23 mmol/L (22-29); CHLORIDE 108 mmol/L (98-107); CREATININE, SERUM 0.61 mg/dL (0.57-1.11); EST GLOMERULAR FILTRATION RATE > 60 ML/MIN (60-); GLUCOSE 117 mg/dL (74-118); MAGNESIUM 2.1 MG/DL (1.3-2.1); POTASSIUM 4.5 mmol/L (3.5-5.1); SODIUM 139 mmol/L (136-145)
[2020-01-07] MEDS: INSULIN REGULAR, HUMAN 100 UNIT/1 ML 3ML VIAL SQ SCH ×3 (07:30→16:30)
[2020-01-07 07:42] VITALS: BP 153/68
[2020-01-07] MEDS: ZINC OXIDE 30 GM TUBE TOP SCH ×2 (08:30→15:00)
[2020-01-07 09:00] VITALS: BP 153/68
[2020-01-07] MEDS: INSULIN GLARGINE 100 UNITS/ML VIAL SC SCH (09:00)
[2020-01-07] MEDS: ZINC SULFATE 220 MG CAP PO SCH ×2 (09:00→17:38)
[2020-01-07] MEDS: COLLAGENASE 5 GM TUBE TOP SCH (09:00)
[2020-01-07] MEDS: MAGNESIUM OXIDE 400 MG TAB PO SCH ×2 (09:00→17:38)
[2020-01-07] MEDS: LOSARTAN POTASSIUM 25 MG TAB PO SCH (09:00)
[2020-01-07] MEDS: PANTOPRAZOLE 40 MG 10ML VIAL IV SCH ×2 (09:00→17:38)
[2020-01-07] MEDS: ASCORBIC ACID 500 MG TAB PO SCH ×2 (09:00→17:38)
[2020-01-07] MEDS: NYSTATIN 15 GM POWDER UD BTL TOP SCH ×2 (09:00→17:38)
[2020-01-07] MEDS: LACTULOSE SYRUP 20 GM/30 ML UDC PO SCH ×2 (09:00→17:00)
[2020-01-07] MEDS: OYST-CAL-D 500MG TABLET PO SCH ×2 (09:00→17:38)
[2020-01-07] MEDS: BALSAM PERU/CASTOR OIL 60 GM OINT...G. TP SCH (09:00)
[2020-01-07] MEDS ORDERED: Collagenase TOP (10:32)
[2020-01-07] MEDS ORDERED: METRONIDAZOLE500 MG PO (10:32)
[2020-01-07] MEDS ORDERED: LEVAQUIN500 MG PO (10:32)
[2020-01-07] MEDS ORDERED: Multivitamins/Minerals PO (10:32)
[2020-01-07] MEDS ORDERED: ASCORBIC ACID500 MG PO (10:32)
[2020-01-07] MEDS ORDERED: ZINC SULFATE220 M1 PO (10:32)
[2020-01-07] MEDS ORDERED: MAG-OXIDE400 MG PO (10:32)
[2020-01-07] MEDS ORDERED: PANTOPRAZOLE SO40 MG PO (10:32)
[2020-01-07] MEDS ORDERED: Calcium Carbonate PO (10:32)
--- NOTE | 2020-01-07 11:30 | NUR ---
Wound care made rounds to apply wound vac ,explained that patient is currently being prepped for colonoscopy today and wound vac will need to be applied tomorrow.
[2020-01-07 11:44] VITALS: BP 150/65
--- NOTE | 2020-01-07 11:48 | NUR ---
WOUND CARE CONSULT FOR NEGATIVE PRESSURE APPLICATION PATIENT IS RESCHEDULED FOR PROCEDURE NEGATIVE PRESSURE DRESSING TO BE APPLIED Saturday01/08/2020 Addendum: 01/07/20 at 1150 by Ervin Rodgers RN Amended: Links added.
[2020-01-07] MEDS ORDERED: LIDOCAINE HCL 2% LOCAL INJ 5 ML SDV VIAL INJ ONE (14:06)
[2020-01-07] MEDS ORDERED: PROPOFOL IV EMULSION 10 MG/ML 20 ML VIAL ONE (14:06)
--- NOTE | 2020-01-07 15:36 | NUR ---
SPOKE WITH JUANCHO, SHE IS DENIED BECAUSE SHE IS IN [place] DAYS AND HER CO PAY IS 170 A DAY, STATES HE CANNOT PAY THAT, STATES SHE CAN GO BACK TO [facility] BECAUSE HE CANNOT TAKE HER HOME. FAXED CLINICALS AND GOT APPROVAL FOR FACILITY.
--- NOTE | 2020-01-07 15:37 | NUR ---
[facility] DISCHARGE INFORMATION PATIENT HAS BEEN ACCEPTED TO: NAME: [facility] ADDRESS:[id number] [facility] ACCEPTING HEAVY EQUIPMENT SERVICE MANAGER: JILLIAN MEADOWS MD: YUSUF ROOM:[id number] NURSE CALL REPORT TO: [phone] IMM SIGNED AND OBTAINED (if applicable): IMM THE FOLLOWING DOCUMENTS MUST ACCOMPANY PATIENT FOR TRANSFER: COPIED CHART: PACKET
--- NOTE | 2020-01-07 16:23 | NUR ---
Spoke to Dr. Darleen Orona. States pt is cleared for discharge from his standpoint.
[2020-01-07 16:30] VITALS: BP 129/52
--- NOTE | 2020-01-07 16:32 | NUR ---
Nutrition Intervention Note RD Recommendation(s) for Physician: - Advance diet to GI soft/diabetic diet when medically appropriate - Recommend Glucerna Shake BID for adequacy when diet advanced - Recommend Yaw 1 packet BID to promote wound healing when diet advanced - Recommend MVI with minerals once daily, vitamin C 500 mg/day, and 220 mg Zinc Sulfate once daily to promote wound healing Plan of Care: RD following, monitoring for tolerance and adequacy. Nutrition reason for involvement: follow up RD Assessment 01/06: Follow up. Pt is currently NPO due to having a colonoscopy today. Unable to obtain history from pt and no family members were preset at bedside. ST evaluated pt yesterday but was only able to assess liquids at time of visit due to liquid diet restriction. Pt is safe to swallow thin liquids per ST note. It is recorded that pt consumed 0-25% of liquids yesterday. Will continue to monitor. 01/04: 64 YOF admitted from SNF for colitis and coffee ground emesis, seen today per stage IV PU to sacrum on admit. Pt with hx of CVA, dysphagia, cognitive communicative deficit, and is Kuwaiti speaking only- unable to obtain hx from pt, no family present at time of visit. Pt appears well nourished. 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 Chart reviewed. Pt discussed during am MDR. Will continue to monitor. Principal Problems/Diagnoses: colitis, UTI, coffee ground emesis PMH: CVA, hemiplegia, hemiparesis, pressue ulcer, dysphagia, failure to thrive, cognitive communicative deficit, DM, anemia, essential HTN GI: last recorded BM 01/06 Skin: stage IV sacral PU Labs: 01/06: Na 139, K 4.5, BUN 12, Cr0.61, Glu 117 01/04: Na 137, K 3.6, BUN 13, Cr 0.57, Gluc 112 Meds: antibiotics, losartan, protonix, miralalx, Lipitor, hydralazine, multivitamin with minerals, insulin, lactulose, vitamin C, calcium carbonate, zinc sulfate, insulin Ht: 61 in Wt: 155 lbs 151 lb (01/04) BMI: 29.3 kg/m2 IBW: 105 lb Malnutrition Evaluation (01/05/20) The patient does not meet criteria for a specified degree of malnutrition at this time. Will re-evaluate at follow-up as appropriate. Unable to obtain nutrition hx. Energy intake: Unable to assess Weight loss: Unable to assess Fat loss: none, ample triceps skinfold thickness Muscle loss: none, shoulder round and interosseous flat Supporting Evidence: Fluid accumulation: none observed Functional Status: Not assessed Nutrition Prescription (Diet Order): NPO Estimated Nutritional Needs: 7057-0728 calories/day (18-22 kcal/kg CBW) 70-106 g protein/day (1-1.5 g pro/kg CBW) Diet Adequacy: Not meeting calorie needs, Not meeting protein needs- NPO Diet Tolerance: N/A Diet Education Needs Assessment: Diet education not indicated at this time Nutrition Care Level: moderate Nutrition Diagnosis: Inadequate energy and protein intake related to colitis as evidenced by NPO status. Goal: Patient will meet 75-100% of estimated needs by follow up Progress: N/A Interventions: -CHO, fiber modified diet, Commercial beverage, Recommended Modifications, Multivitamin/mineral supplement therapy, Collaboration with other providers Monitoring/Evaluation: -Total energy intake, Total protein intake, Modified diet, Liquid supplement Signed: Kaylyn Martino RD, LD
[2020-01-07] MEDS: ASPIRIN 81 MG CHEW TAB PO SCH (17:38)
[2020-01-07] MEDS: MULTIVITAMINS/MINERALS TAB PO SCH (17:38)
[2020-01-07] MEDS: CLOPIDOGREL BISULFATE 75 MG TAB PO SCH (17:38)
--- NOTE | 2020-01-07 17:53 | NUR ---
Romero was removed per DRY CHAIN PULLER orders before transferring
--- NOTE | 2020-01-07 18:07 | NUR ---
Report called to [facility] patient is going to room 318A. Prescriptions are in chart. Discharge instructions were given to the patient's . IV was removed with tip intact.
--- NOTE | 2020-01-08 07:32 | Discharge Summary ---
ADMISSION DIAGNOSES: Colitis with stercoral colitis, acute anemia due to blood loss from hematemesis, dysphagia, hypertension, type 2 diabetes, history of cerebrovascular accident with left-sided hemiparalysis, bed-bound, stage IV sacral decubitus present on admission, left heel deep tissue injury, acute urinary tract infection present on admission. DISCHARGE DIAGNOSES: Colitis with stercoral colitis, acute anemia due to blood loss from hematemesis, dysphagia, hypertension, type 2 diabetes, history of cerebrovascular accident with left-sided hemiparalysis, bed-bound, stage IV sacral decubitus present on admission, left heel deep tissue injury, acute urinary tract infection present on admission, rule out gastrointestinal bleed, Pseudomonas aeruginosa urinary tract infection present on admission, esophagitis, gastritis, rectal polyp. HISTORY: CVA with left hemiplegia and left upper extremity contracture, hypertension, type 2 diabetes, anemia, hyperlipidemia, GI bleed, sacral stage IV pressure ulcer, viral herpes. SURGICAL HISTORY: None. FAMILY HISTORY: The patient's mom had diabetes. SOCIAL HISTORY: None. HOSPITAL COURSE: A 64-year-old male from [facility], admitted for vomiting blood, which was described as coffee-ground emesis 15 times on 01/03. On admission, hemoglobin was 11.2, which dropped to 9.4, but remained stable thereafter. Stool for blood was negative. Chest x-ray was negative. CT of the abdomen and pelvis showed a rectal stercoral colitis. The patient was started on Flagyl and Levaquin. Urine culture came back positive for Pseudomonas aeruginosa. GI was consulted, who ordered an EGD and colonoscopy. EGD showed gastritis, small sliding hiatal hernia, and esophagitis. The patient was started on Protonix. The patient initially had a colonoscopy, which showed a rectal polyp, but then due to poor prep had to have a repeat colonoscopy the following day. GI has cleared the patient for discharge. Hemoglobin remained stable and he was tolerating diet. He will discharge back to [facility] with wound healing vitamins, Santyl to the left heel per wound care recommendation. Remaining doses of Levaquin and Flagyl and Protonix. The patient and understand instructions and agrees to plan. Vital signs stable. The patient afebrile. Dictated by Suni Maynard NP Kip W Killam, MD GERARDO/MODL /[id number]
== END 2020-01-07 19:09 | DRG 391 ==
LOC: EDSEX → ER 18:19 → EDSEX 21:37 → EDBD 21:37 → ERHOLD 21:37 → MED/SURG2 22:36
PROVIDERS: ADMIT Internal Medicine; ATTEND Internal Medicine
PROC: 0DBP8ZZ Excision of Rectum, Via Natural or Artificial Opening Endoscopic (ICD-10-PCS; principal; 2020-01-06 12:44)
PROC: 0DB78ZZ Excision of Stomach, Pylorus, Via Natural or Artificial Opening Endoscopic (ICD-10-PCS; 2020-01-06 12:44)
DX: K52.89 Other specified noninfective gastroenteritis and colitis (principal); L89.154 Pressure ulcer of sacral region, stage 4; D62 Acute posthemorrhagic anemia; E87.1 Hypo-osmolality and hyponatremia; L97.428 Non-pressure chronic ulcer of left heel and midfoot with other specified severity; I69.354 Hemiplegia and hemiparesis following cerebral infarction affecting left non-dominant side; N39.0 Urinary tract infection, site not specified; E11.9 Type 2 diabetes mellitus without complications; Z74.01 Bed confinement status; E11.621 Type 2 diabetes mellitus with foot ulcer; Z79.4 Long term (current) use of insulin; K20.9 Esophagitis, unspecified; K29.70 Gastritis, unspecified, without bleeding; B96.5 Pseudomonas (aeruginosa) (mallei) (pseudomallei) as the cause of diseases classified elsewhere; B00.9 Herpesviral infection, unspecified; E78.5 Hyperlipidemia, unspecified; K44.9 Diaphragmatic hernia without obstruction or gangrene; R13.10 Dysphagia, unspecified; K62.1 Rectal polyp
CPT/HCPCS: 36415; 43239; 45378; 45380; 45385; 71045; 74176; 80048; 80053; 80061; 81001; 82150; 82270; 82550; 82553; 82948; 83036; 83690; 83735; 84100; 84443; 84484; 85025; 85610; 85730; 86850; 86900; 87086; 87186; 88305; 88312; 93005; 99284; J0360; J1956; J2001; J2405; J3010; J7030